=== PATIENT | male | born 1995 | race Caucasian/White ===

== ENCOUNTER 2023-02-27 23:25 | Inpatient (IN) | payer MEDICAID, OTHER ==
[~2023-02-27] VITALS: Ht 175.3 cm; Wt 94.4 kg
[~2023-02-27 23:25] MED LIST: CITA10TA99 PO; DIVA-112 PO; QUET100T PO; QUET300T2 PO
[2023-02-27 23:55] LABS: COVID AG,FIA SOURCE NASAL SWAB
[2023-02-27 23:58] LABS: BASOPHILS % (AUTO) 0.7 % (0.0-2.0); EOSINOPHILS % (AUTO) 3.8 % (1.0-6.0); HEMATOCRIT 38.3 % (41-53); HEMOGLOBIN 12.9 g/dL (13.5-17.5); LYMPHOCYTES % (AUTO) 38.4 % (22.0-44.0); MEAN CORPUSCULAR HEMOGLOBIN 31.7 pg (26.0-34.0); MEAN CORPUSCULAR HGB CONC 33.8 G/dL (31.0-37.0); MEAN CORPUSCULAR VOLUME 94 fL (80-100); MONOCYTES # (AUTO) 0.9 K/uL (0.1-1.0); MONOCYTES % (AUTO) 11.4 % (2.0-9.0); NEUTROPHILS # (AUTO) 3.6 K/uL (1.8-7.7); NEUTROPHILS % (AUTO) 45.7 % (40.0-70.0); PLATELET COUNT (AUTO) 245 K/uL (150-450); RED BLOOD CELL COUNT(AUTO) 4.09 MIL/uL (4.50-5.90); RED CELL DISTRIBUTION WIDTH 13.6 % (11.5-14.5); WHITE BLOOD COUNT (AUTO) 7.8 K/uL (4.5-11.0)
[2023-02-28 00:09] LABS: ANION GAP 14 mmol/L (8-16); CALCIUM, TOTAL 8.2 mg/dL (8.8-10.5); CARBON DIOXIDE 25 mmol/L (22-29); CHLORIDE 105 mmol/L (98-107); CREATININE 0.76 mg/dL (0.60-1.30); GLOMERULAR FILTR. RATE CALC > 60 mL/min (>60); GLUCOSE,RANDOM 109 mg/dL (70-110); POTASSIUM 3.6 mmol/L (3.5-5.1); SODIUM SERUM 144 mmol/L (136-145); UREA NITROGEN, BLOOD 9 mg/dL (7-18)
[2023-02-28 00:11] LABS: SARS-COV2 (COVID) ANTIGEN,FIA Negative (Negative)
[2023-02-28 00:15] LABS: ALANINE AMINOTRANSFERASE 162 U/L (12-78); ALKALINE PHOSPHATASE 65 U/L (46-116); ASPARTATE AMINOTRANSFERASE 68 U/L (15-37); BILIRUBIN,TOTAL 0.3 mg/dL (0.1-1.0); TOTAL PROTEIN, SERUM 6.4 g/dL (6.4-8.2); VALPROIC ACID 37 mcg/mL (50-100)
[2023-02-28 00:26] LABS: PH,URINE DRUG SCREEN 6.5 (5.0-8.0)
[2023-02-28 00:30] LABS: ALCOHOL, BLOOD (SERUM) < 3 mg/dL (0-10)
[2023-02-28 00:33] LABS: AMPHET/METH SCREEN,URINE NEGATIVE (NEGATIVE); BARBITURATE SCREEN, URINE NEGATIVE (NEGATIVE); BENZODIAZEPINES SCREEN,URINE NEGATIVE (NEGATIVE); CANNABINOID SCREEN,URINE NEGATIVE (NEGATIVE); COCAINE SCREEN,URINE NEGATIVE (NEGATIVE); METHADONE SCREEN, URINE NEGATIVE (NEGATIVE); OPIATE SCREEN,URINE NEGATIVE (NEGATIVE); PHENCYCLIDINE SCREEN,URINE NEGATIVE (NEGATIVE)
[2023-02-28 00:34] LABS: ALCOHOL, URINE DRUG SCREEN NEGATIVE (NEGATIVE)
[2023-02-28 10:57] VITALS: BP 127/72; PULSE 89; RESP 18; TEMP 97.8; O2SAT 99
[2023-02-28 11:05] LABS: APPEARANCE,URINE HAZY (CLEAR); BILIRUBIN,URINE NEGATIVE (NEGATIVE); COLOR,URINE LIGHT YELLOW (YELLOW); GLUCOSE, URINE (UA) NEGATIVE (NEGATIVE); KETONES,URINE NEGATIVE (NEGATIVE); LEUKOCYTE ESTERASE ,URINE NEGATIVE (NEGATIVE); NITRATE,URINE NEGATIVE (NEGATIVE); OCCULT BLOOD,URINE NEGATIVE (NEGATIVE); PROTEIN,URINE 30-70 mg/dL (NEGATIVE); UROBILINOGEN,URINE <=1.0 mg/dL (<=1.0)
[2023-02-28 11:11] LABS: ALCOHOL, URINE DRUG SCREEN NEGATIVE (NEGATIVE); AMPHET/METH SCREEN,URINE NEGATIVE (NEGATIVE); BARBITURATE SCREEN, URINE NEGATIVE (NEGATIVE); BENZODIAZEPINES SCREEN,URINE NEGATIVE (NEGATIVE); CANNABINOID SCREEN,URINE NEGATIVE (NEGATIVE); COCAINE SCREEN,URINE NEGATIVE (NEGATIVE); METHADONE SCREEN, URINE NEGATIVE (NEGATIVE); OPIATE SCREEN,URINE NEGATIVE (NEGATIVE); PHENCYCLIDINE SCREEN,URINE NEGATIVE (NEGATIVE)
[2023-02-28] MEDS ORDERED: NICOTINE 14 MG/24 HOUR PATCH TD PRN (12:45)
[2023-02-28] MEDS ORDERED: ALBUTEROL SULFATE HFA 90 MCG/PUFF 8 GM INHALER IH PRN (12:45)
[2023-02-28] MEDS ORDERED: ONDANSETRON HCL 4 MG TABLET PO PRN (12:45)
[2023-02-28] MEDS ORDERED: DOCUSATE SODIUM 100 MG CAPSULE PO PRN (12:45)
[2023-02-28] MEDS ORDERED: GuaiFENesin/D-METHORPHAN [SUGAR-FREE] 200-20MG/10 ML SYRUP UDCUP PO PRN (12:45)
[2023-02-28] MEDS ORDERED: MAGNESIUM HYDROXIDE SUSPENSION 30 ML UDCUP PO PRN (12:45)
[2023-02-28] MEDS ORDERED: PETROLATUM,WHITE 28 GM JELLY TP PRN (12:45)
[2023-02-28] MEDS ORDERED: LOPERAMIDE HCL 2 MG CAPSULE PO PRN (12:45)
[2023-02-28] MEDS ORDERED: CloNIDine HCL 0.1 MG TABLET PO PRN (12:45)
[2023-02-28] MEDS: QUEtiapine FUMARATE 300 MG TABLET PO SCH (20:47)
[2023-02-28] MEDS: DIVALPROEX SODIUM 500 MG DR TABLET PO SCH (20:47)
[2023-02-28 21:03] VITALS: BP 116/74; PULSE 88; RESP 16; TEMP 98.4; O2SAT 99
[2023-03-01] MEDS: CITALOPRAM HYDROBROMIDE 10 MG TABLET PO SCH (08:31)
[2023-03-01] MEDS: DIVALPROEX SODIUM 500 MG DR TABLET PO SCH ×2 (08:31→21:17)
[2023-03-01] MEDS: QUEtiapine FUMARATE 100 MG TABLET PO SCH (08:31)
[2023-03-01 09:27] VITALS: BP 111/67; PULSE 84; RESP 18; TEMP 97.2; O2SAT 100
[2023-03-01 10:31] LABS: HEMOGLOBIN A1C 5.2 % (3.8-5.6)
[2023-03-01 10:39] LABS: THYROID STIMULATING HORMONE 2.69 uIU/mL (0.36-3.74)
[2023-03-01] MEDS: QUEtiapine FUMARATE 300 MG TABLET PO SCH (21:17)
[2023-03-01 22:48] VITALS: BP 121/71; PULSE 99; RESP 18; TEMP 97.9; O2SAT 98
[2023-03-02 07:02] LABS: CHOL/HDL RATIO 3.9 (4.2-7.3)
[2023-03-02] MEDS: CITALOPRAM HYDROBROMIDE 10 MG TABLET PO SCH (08:46)
[2023-03-02] MEDS: QUEtiapine FUMARATE 100 MG TABLET PO SCH (08:46)
[2023-03-02] MEDS: DIVALPROEX SODIUM 500 MG DR TABLET PO SCH ×2 (08:46→21:47)
[2023-03-02 10:02] VITALS: BP 109/62; PULSE 80; RESP 17; TEMP 97.5; O2SAT 100
[2023-03-02 14:46] VITALS: BP 116/74; PULSE 86; RESP 18; TEMP 97.4
[2023-03-02] MEDS: ACETAMINOPHEN 325 MG TABLET PO PRN (14:46)
[2023-03-02 15:46] VITALS: BP 118/68; PULSE 82; RESP 18; TEMP 97.2
[2023-03-02 21:05] VITALS: BP 115/73; PULSE 80; RESP 18; TEMP 97.4
[2023-03-02] MEDS: QUEtiapine FUMARATE 300 MG TABLET PO SCH (21:47)
[2023-03-03] MEDS: QUEtiapine FUMARATE 100 MG TABLET PO SCH (08:19)
[2023-03-03] MEDS: DIVALPROEX SODIUM 500 MG DR TABLET PO SCH ×2 (08:19→16:25)
[2023-03-03] MEDS: CITALOPRAM HYDROBROMIDE 10 MG TABLET PO SCH (08:19)
[2023-03-03 09:33] VITALS: BP 99/69; PULSE 81; RESP 16; TEMP 98; O2SAT 98
[2023-03-03 12:09] VITALS: BP 106/74; PULSE 78; RESP 18; TEMP 97.6
[2023-03-03] MEDS: ACETAMINOPHEN 325 MG TABLET PO PRN (12:09)
[2023-03-03 13:09] VITALS: RESP 18; TEMP 97.4
[2023-03-03] MEDS: QUEtiapine FUMARATE 300 MG TABLET PO SCH (19:45)
[2023-03-03] MEDS: ZOLPIDEM TARTRATE 10 MG TABLET PO PRN (21:26)
[2023-03-03 21:39] VITALS: BP 123/78; PULSE 100; RESP 18; TEMP 98.3; O2SAT 98
[2023-03-04] MEDS: QUEtiapine FUMARATE 100 MG TABLET PO SCH (08:44)
[2023-03-04] MEDS: DIVALPROEX SODIUM 500 MG DR TABLET PO SCH ×2 (08:44→20:53)
[2023-03-04] MEDS: CITALOPRAM HYDROBROMIDE 10 MG TABLET PO SCH (08:44)
[2023-03-04 10:06] VITALS: BP 118/87; PULSE 79; RESP 19; TEMP 97.9; O2SAT 99
[2023-03-04] MEDS: ACETAMINOPHEN 325 MG TABLET PO PRN (15:58)
[2023-03-04] MEDS: LORazepam 2 MG TABLET PO PRN (19:10)
[2023-03-04] MEDS: HALOPERIDOL 5 MG TABLET PO PRN (19:10)
[2023-03-04 20:44] VITALS: BP 129/73; PULSE 87; RESP 19; TEMP 98.7; O2SAT 98
[2023-03-04] MEDS: ZOLPIDEM TARTRATE 10 MG TABLET PO PRN (20:53)
[2023-03-04] MEDS: QUEtiapine FUMARATE 300 MG TABLET PO SCH (20:53)
[2023-03-05] MEDS: DIVALPROEX SODIUM 500 MG DR TABLET PO SCH ×2 (08:28→21:26)
[2023-03-05] MEDS: CITALOPRAM HYDROBROMIDE 10 MG TABLET PO SCH (08:28)
[2023-03-05] MEDS: QUEtiapine FUMARATE 100 MG TABLET PO SCH (08:28)
[2023-03-05 09:55] VITALS: BP 115/71; PULSE 81; RESP 18; TEMP 98.4; O2SAT 97
[2023-03-05] MEDS: IBUPROFEN 400 MG TABLET PO PRN (10:03)
[2023-03-05] MEDS: NICOTINE 14 MG/24 HOUR PATCH TD SCH (13:16)
[2023-03-05] MEDS: LORazepam 2 MG TABLET PO PRN ×2 (13:17→21:27)
[2023-03-05] MEDS: HALOPERIDOL 5 MG TABLET PO PRN (21:26)
[2023-03-05] MEDS: QUEtiapine FUMARATE 300 MG TABLET PO SCH (21:26)
[2023-03-05] MEDS: ZOLPIDEM TARTRATE 10 MG TABLET PO PRN (21:27)
[2023-03-05] MEDS ORDERED: HALOPERIDOL LACTATE 5 MG/ML VIAL ONE (21:41)
[2023-03-05] MEDS ORDERED: LORazepam 2 MG/ML VIAL ONE (21:42)
[2023-03-05] MEDS ORDERED: HALOPERIDOL LACTATE 5 MG/ML VIAL IM ONE (21:45)
[2023-03-05] MEDS ORDERED: LORazepam 2 MG/ML VIAL IM ONE (21:45)
[2023-03-05] MEDS ORDERED: DiphenhydrAMINE HCL 50 MG/ML VIAL IM ONE (21:45)
[2023-03-05 22:11] VITALS: BP 112/69; PULSE 74; RESP 16; TEMP 98.5; O2SAT 99
[2023-03-06] MEDS: CITALOPRAM HYDROBROMIDE 10 MG TABLET PO SCH (09:51)
[2023-03-06] MEDS: DIVALPROEX SODIUM 500 MG DR TABLET PO SCH ×2 (09:51→20:20)
[2023-03-06] MEDS: QUEtiapine FUMARATE 100 MG TABLET PO SCH (09:51)
[2023-03-06] MEDS: NICOTINE 14 MG/24 HOUR PATCH TD SCH (09:56)
[2023-03-06 10:27] VITALS: BP 100/61; PULSE 87; RESP 18; TEMP 97.5; O2SAT 98
[2023-03-06] MEDS: HALOPERIDOL 5 MG TABLET PO PRN (18:11)
[2023-03-06] MEDS: LORazepam 2 MG TABLET PO PRN (18:11)
[2023-03-06] MEDS: QUEtiapine FUMARATE 300 MG TABLET PO SCH (20:20)
[2023-03-06 20:36] VITALS: RESP 18
[2023-03-06] MEDS: ZOLPIDEM TARTRATE 10 MG TABLET PO PRN (21:21)
[2023-03-07 10:18] VITALS: BP 126/85; PULSE 81; RESP 18; TEMP 97.4; O2SAT 98
[2023-03-07] MEDS: QUEtiapine FUMARATE 100 MG TABLET PO SCH (10:48)
[2023-03-07] MEDS: DIVALPROEX SODIUM 500 MG DR TABLET PO SCH ×2 (10:48→20:19)
[2023-03-07] MEDS: CITALOPRAM HYDROBROMIDE 10 MG TABLET PO SCH (10:48)
[2023-03-07] MEDS: NICOTINE 14 MG/24 HOUR PATCH TD SCH (10:48)
[2023-03-07] MEDS: LORazepam 2 MG TABLET PO PRN (19:23)
[2023-03-07 20:12] VITALS: BP 124/77; PULSE 84; RESP 18; TEMP 98.1; O2SAT 97
[2023-03-07] MEDS: QUEtiapine FUMARATE 300 MG TABLET PO SCH (20:19)
[2023-03-07] MEDS: ZOLPIDEM TARTRATE 10 MG TABLET PO PRN (21:22)
[2023-03-08 08:19] VITALS: BP 117/76; PULSE 101; RESP 18; TEMP 97.6; O2SAT 97
[2023-03-08] MEDS: QUEtiapine FUMARATE 100 MG TABLET PO SCH (08:28)
[2023-03-08] MEDS: DIVALPROEX SODIUM 500 MG DR TABLET PO SCH ×2 (08:28→20:36)
[2023-03-08] MEDS: CITALOPRAM HYDROBROMIDE 10 MG TABLET PO SCH (08:28)
[2023-03-08] MEDS: NICOTINE 14 MG/24 HOUR PATCH TD SCH (08:29)
[2023-03-08] MEDS: LORazepam 2 MG TABLET PO PRN ×2 (08:55→19:11)
[2023-03-08] MEDS: HYDROCORTISONE 1% 30 GM CREAM TP PRN (11:44)
[2023-03-08] MEDS: IBUPROFEN 400 MG TABLET PO PRN (13:43)
[2023-03-08] MEDS: QUEtiapine FUMARATE 300 MG TABLET PO SCH (20:36)
[2023-03-08] MEDS: ZOLPIDEM TARTRATE 10 MG TABLET PO PRN (21:10)
[2023-03-08] MEDS: HALOPERIDOL 5 MG TABLET PO PRN (23:12)
[2023-03-09 05:35] VITALS: BP 102/60; PULSE 85; RESP 18; O2SAT 97
[2023-03-09 08:12] VITALS: BP 125/78; PULSE 100; RESP 20; TEMP 97.5; O2SAT 99
[2023-03-09] MEDS: QUEtiapine FUMARATE 100 MG TABLET PO SCH (08:14)
[2023-03-09] MEDS: CITALOPRAM HYDROBROMIDE 10 MG TABLET PO SCH (08:14)
[2023-03-09] MEDS: DIVALPROEX SODIUM 500 MG DR TABLET PO SCH ×2 (08:14→20:57)
[2023-03-09] MEDS: NICOTINE 14 MG/24 HOUR PATCH TD SCH (08:15)
[2023-03-09] MEDS: LORazepam 2 MG TABLET PO PRN (19:30)
[2023-03-09] MEDS: HALOPERIDOL 5 MG TABLET PO PRN (19:30)
[2023-03-09 20:14] VITALS: RESP 18
[2023-03-09] MEDS: QUEtiapine FUMARATE 300 MG TABLET PO SCH (20:58)
[2023-03-09] MEDS: ZOLPIDEM TARTRATE 10 MG TABLET PO PRN (21:30)
[2023-03-10] MEDS ORDERED: BACITRACIN 28 GM OINTMENT TP PRN (07:45)
[2023-03-10] MEDS: NICOTINE 14 MG/24 HOUR PATCH TD SCH (08:22)
[2023-03-10] MEDS: DIVALPROEX SODIUM 500 MG DR TABLET PO SCH ×2 (08:22→21:32)
[2023-03-10] MEDS: CITALOPRAM HYDROBROMIDE 10 MG TABLET PO SCH (08:22)
[2023-03-10] MEDS: QUEtiapine FUMARATE 100 MG TABLET PO SCH (08:22)
[2023-03-10 08:28] VITALS: BP 147/82; PULSE 89; RESP 17; TEMP 97.7
[2023-03-10] MEDS: HYDROCORTISONE 1% 30 GM CREAM TP PRN (14:42)
[2023-03-10 17:07] VITALS: BP 139/78; PULSE 78; RESP 18; TEMP 97.8; O2SAT 98
[2023-03-10] MEDS: ACETAMINOPHEN 325 MG TABLET PO PRN (17:07)
[2023-03-10] MEDS: LORazepam 2 MG TABLET PO PRN (19:45)
[2023-03-10] MEDS: HALOPERIDOL 5 MG TABLET PO PRN (19:45)
[2023-03-10 20:40] VITALS: BP 129/72; PULSE 77; RESP 18; TEMP 97.7; O2SAT 97
[2023-03-10] MEDS: ZOLPIDEM TARTRATE 10 MG TABLET PO PRN (21:32)
[2023-03-10] MEDS: QUEtiapine FUMARATE 300 MG TABLET PO SCH (21:32)
[2023-03-11 08:30] VITALS: BP 106/80; PULSE 89; RESP 18; TEMP 97.6; O2SAT 96
[2023-03-11] MEDS: DIVALPROEX SODIUM 500 MG DR TABLET PO SCH ×2 (08:57→21:15)
[2023-03-11] MEDS: QUEtiapine FUMARATE 100 MG TABLET PO SCH (08:57)
[2023-03-11] MEDS: CITALOPRAM HYDROBROMIDE 10 MG TABLET PO SCH (08:57)
[2023-03-11] MEDS: NICOTINE 14 MG/24 HOUR PATCH TD SCH (08:57)
[2023-03-11 11:40] VITALS: BP 115/76; PULSE 78; RESP 18
[2023-03-11] MEDS: IBUPROFEN 400 MG TABLET PO PRN (11:45)
[2023-03-11 12:45] VITALS: RESP 18
[2023-03-11] MEDS: LORazepam 2 MG TABLET PO PRN (19:55)
[2023-03-11] MEDS: HALOPERIDOL 5 MG TABLET PO PRN (19:55)
[2023-03-11 20:44] VITALS: BP 132/89; PULSE 100; RESP 18; TEMP 98
[2023-03-11] MEDS: ZOLPIDEM TARTRATE 10 MG TABLET PO PRN (21:15)
[2023-03-11] MEDS: QUEtiapine FUMARATE 300 MG TABLET PO SCH (21:15)
[2023-03-12 08:30] VITALS: RESP 18
[2023-03-12] MEDS: CITALOPRAM HYDROBROMIDE 10 MG TABLET PO SCH (09:02)
[2023-03-12] MEDS: DIVALPROEX SODIUM 500 MG DR TABLET PO SCH ×2 (09:02→21:06)
[2023-03-12] MEDS: QUEtiapine FUMARATE 100 MG TABLET PO SCH (09:02)
[2023-03-12] MEDS: NICOTINE 14 MG/24 HOUR PATCH TD SCH (09:03)
[2023-03-12 21:05] VITALS: RESP 20
[2023-03-12] MEDS: QUEtiapine FUMARATE 300 MG TABLET PO SCH (21:06)
[2023-03-12] MEDS: ZOLPIDEM TARTRATE 10 MG TABLET PO PRN (21:06)
[2023-03-13] MEDS: LORazepam 2 MG TABLET PO PRN ×2 (08:33→17:08)
[2023-03-13] MEDS: QUEtiapine FUMARATE 100 MG TABLET PO SCH (08:33)
[2023-03-13] MEDS: DIVALPROEX SODIUM 500 MG DR TABLET PO SCH ×2 (08:33→20:54)
[2023-03-13] MEDS: CITALOPRAM HYDROBROMIDE 10 MG TABLET PO SCH (08:33)
[2023-03-13] MEDS: NICOTINE 14 MG/24 HOUR PATCH TD SCH (08:37)
[2023-03-13 09:18] VITALS: BP 111/69; PULSE 69; RESP 18; TEMP 97.5; O2SAT 98
[2023-03-13] MEDS: HALOPERIDOL 5 MG TABLET PO PRN (17:09)
[2023-03-13] MEDS: IBUPROFEN 400 MG TABLET PO PRN (17:09)
[2023-03-13] MEDS: QUEtiapine FUMARATE 300 MG TABLET PO SCH (20:54)
[2023-03-13 21:09] VITALS: BP 121/65; PULSE 94; RESP 18; TEMP 97.9; O2SAT 97
[2023-03-14] MEDS: QUEtiapine FUMARATE 100 MG TABLET PO SCH (08:33)
[2023-03-14] MEDS: CITALOPRAM HYDROBROMIDE 10 MG TABLET PO SCH (08:34)
[2023-03-14] MEDS: DIVALPROEX SODIUM 500 MG DR TABLET PO SCH ×2 (08:34→20:26)
[2023-03-14] MEDS: NICOTINE 14 MG/24 HOUR PATCH TD SCH (08:36)
[2023-03-14 08:54] VITALS: BP 136/90; PULSE 103; RESP 18; TEMP 97.7; O2SAT 98
[2023-03-14] MEDS: IBUPROFEN 400 MG TABLET PO PRN ×2 (11:45→20:27)
[2023-03-14] MEDS: HALOPERIDOL 5 MG TABLET PO PRN (13:42)
[2023-03-14] MEDS: LORazepam 2 MG TABLET PO PRN ×2 (13:42→20:26)
[2023-03-14 20:23] VITALS: BP 125/74; PULSE 88; RESP 18; TEMP 97.2; O2SAT 97
[2023-03-14] MEDS: QUEtiapine FUMARATE 300 MG TABLET PO SCH (20:26)
[2023-03-14] MEDS: ZOLPIDEM TARTRATE 10 MG TABLET PO PRN (20:26)
[2023-03-14 20:42] VITALS: BP 122/79; PULSE 102; RESP 18; TEMP 97.1; O2SAT 98
[2023-03-14 21:26] VITALS: RESP 18
[2023-03-15] MEDS: CITALOPRAM HYDROBROMIDE 10 MG TABLET PO SCH (08:47)
[2023-03-15] MEDS: QUEtiapine FUMARATE 100 MG TABLET PO SCH (08:47)
[2023-03-15] MEDS: DIVALPROEX SODIUM 500 MG DR TABLET PO SCH ×2 (08:47→20:57)
[2023-03-15] MEDS: NICOTINE 14 MG/24 HOUR PATCH TD SCH (09:08)
[2023-03-15 11:59] VITALS: BP 141/82; PULSE 70; RESP 18; TEMP 97.8; O2SAT 98
[2023-03-15] MEDS: IBUPROFEN 400 MG TABLET PO PRN (13:26)
[2023-03-15 20:20] VITALS: BP 149/80; PULSE 85; RESP 19; TEMP 97.8; O2SAT 99
[2023-03-15] MEDS: QUEtiapine FUMARATE 300 MG TABLET PO SCH (20:57)
[2023-03-15] MEDS: ZOLPIDEM TARTRATE 10 MG TABLET PO PRN (20:57)
[2023-03-15] MEDS: MELATONIN 5 MG TABLET PO SCH (20:57)
[2023-03-16] MEDS: DIVALPROEX SODIUM 500 MG DR TABLET PO SCH ×2 (08:29→20:53)
[2023-03-16 08:30] VITALS: RESP 18
[2023-03-16] MEDS: CITALOPRAM HYDROBROMIDE 10 MG TABLET PO SCH (08:30)
[2023-03-16] MEDS: NICOTINE 14 MG/24 HOUR PATCH TD SCH (08:30)
[2023-03-16] MEDS: QUEtiapine FUMARATE 100 MG TABLET PO SCH (08:30)
[2023-03-16] MEDS: IBUPROFEN 400 MG TABLET PO PRN (08:31)
[2023-03-16 08:41] VITALS: BP 109/73; PULSE 91; RESP 18; TEMP 97.8; O2SAT 97
[2023-03-16] MEDS: HYDROCORTISONE 1% 30 GM CREAM TP PRN (09:23)
[2023-03-16 09:30] VITALS: RESP 18
[2023-03-16] MEDS: LORazepam 2 MG TABLET PO PRN (15:24)
[2023-03-16] MEDS: MELATONIN 5 MG TABLET PO SCH (20:53)
[2023-03-16] MEDS: ZOLPIDEM TARTRATE 10 MG TABLET PO PRN (20:53)
[2023-03-16] MEDS: QUEtiapine FUMARATE 300 MG TABLET PO SCH (20:53)
[2023-03-16 21:00] VITALS: BP 127/73; PULSE 102; RESP 18; TEMP 98.1; O2SAT 97
[2023-03-17] MEDS: CITALOPRAM HYDROBROMIDE 10 MG TABLET PO SCH (08:11)
[2023-03-17] MEDS: DIVALPROEX SODIUM 500 MG DR TABLET PO SCH ×2 (08:12→20:51)
[2023-03-17] MEDS: QUEtiapine FUMARATE 100 MG TABLET PO SCH (08:12)
[2023-03-17] MEDS: NICOTINE 14 MG/24 HOUR PATCH TD SCH (08:14)
[2023-03-17 08:37] VITALS: BP 145/93; PULSE 102; RESP 18; TEMP 97.7; O2SAT 98
[2023-03-17] MEDS: IBUPROFEN 400 MG TABLET PO PRN ×2 (08:37→17:03)
[2023-03-17] MEDS: BusPIRone HCL 5 MG TABLET PO SCH ×3 (14:20→20:51)
[2023-03-17 17:01] VITALS: BP 132/68; PULSE 100; RESP 18; O2SAT 0
[2023-03-17 20:21] VITALS: RESP 20
[2023-03-17] MEDS: QUEtiapine FUMARATE 300 MG TABLET PO SCH (20:51)
[2023-03-17] MEDS: MELATONIN 5 MG TABLET PO SCH (20:51)
[2023-03-17] MEDS: ZOLPIDEM TARTRATE 10 MG TABLET PO PRN (21:24)
[2023-03-18 08:54] VITALS: BP 102/70; PULSE 88; RESP 18; TEMP 97.9; O2SAT 97
[2023-03-18] MEDS: CITALOPRAM HYDROBROMIDE 10 MG TABLET PO SCH (08:55)
[2023-03-18] MEDS: BusPIRone HCL 5 MG TABLET PO SCH ×3 (08:56→21:01)
[2023-03-18] MEDS: QUEtiapine FUMARATE 100 MG TABLET PO SCH (08:57)
[2023-03-18] MEDS: DIVALPROEX SODIUM 500 MG DR TABLET PO SCH ×2 (08:57→21:01)
[2023-03-18] MEDS: NICOTINE 14 MG/24 HOUR PATCH TD SCH (09:03)
[2023-03-18] MEDS: LORazepam 2 MG TABLET PO PRN (09:18)
[2023-03-18] MEDS: IBUPROFEN 400 MG TABLET PO PRN (18:28)
[2023-03-18] MEDS: MELATONIN 5 MG TABLET PO SCH (21:01)
[2023-03-18] MEDS: ZOLPIDEM TARTRATE 10 MG TABLET PO PRN (21:01)
[2023-03-18] MEDS: QUEtiapine FUMARATE 300 MG TABLET PO SCH (21:01)
[2023-03-18 21:52] VITALS: RESP 18
[2023-03-19] MEDS: CITALOPRAM HYDROBROMIDE 10 MG TABLET PO SCH (07:51)
[2023-03-19] MEDS: QUEtiapine FUMARATE 100 MG TABLET PO SCH (07:52)
[2023-03-19] MEDS: DIVALPROEX SODIUM 500 MG DR TABLET PO SCH ×2 (07:52→20:31)
[2023-03-19] MEDS: BusPIRone HCL 5 MG TABLET PO SCH ×3 (07:52→20:31)
[2023-03-19] MEDS: NICOTINE 14 MG/24 HOUR PATCH TD SCH (07:55)
[2023-03-19 08:30] VITALS: BP 110/56; PULSE 81; RESP 16; TEMP 98.5; O2SAT 99
[2023-03-19] MEDS: IBUPROFEN 400 MG TABLET PO PRN (16:06)
[2023-03-19] MEDS: QUEtiapine FUMARATE 300 MG TABLET PO SCH (20:31)
[2023-03-19] MEDS: MELATONIN 5 MG TABLET PO SCH (20:31)
[2023-03-19] MEDS: ZOLPIDEM TARTRATE 10 MG TABLET PO PRN (21:13)
[2023-03-19 21:30] VITALS: BP 118/71; PULSE 109; RESP 18; TEMP 98.6; O2SAT 97
[2023-03-20] MEDS: BusPIRone HCL 5 MG TABLET PO SCH ×3 (07:59→20:21)
[2023-03-20] MEDS: CITALOPRAM HYDROBROMIDE 10 MG TABLET PO SCH (08:00)
[2023-03-20] MEDS: QUEtiapine FUMARATE 100 MG TABLET PO SCH (08:01)
[2023-03-20] MEDS: DIVALPROEX SODIUM 500 MG DR TABLET PO SCH ×2 (08:01→20:22)
[2023-03-20] MEDS: NICOTINE 14 MG/24 HOUR PATCH TD SCH (08:02)
[2023-03-20 08:46] VITALS: BP 121/98; PULSE 93; RESP 18; TEMP 97.5
[2023-03-20] MEDS: QUEtiapine FUMARATE 300 MG TABLET PO SCH (20:22)
[2023-03-20] MEDS: MELATONIN 5 MG TABLET PO SCH (20:22)
[2023-03-20 21:07] VITALS: BP 120/63; PULSE 89; RESP 18; TEMP 97.4
[2023-03-20] MEDS: HALOPERIDOL 5 MG TABLET PO PRN (21:45)
[2023-03-20] MEDS: LORazepam 2 MG TABLET PO PRN (21:45)
[2023-03-20] MEDS: ZOLPIDEM TARTRATE 10 MG TABLET PO PRN (22:51)
[2023-03-21] MEDS: DIVALPROEX SODIUM 500 MG DR TABLET PO SCH ×2 (08:26→20:41)
[2023-03-21] MEDS: QUEtiapine FUMARATE 100 MG TABLET PO SCH (08:26)
[2023-03-21] MEDS: NICOTINE 14 MG/24 HOUR PATCH TD SCH (08:26)
[2023-03-21] MEDS: BusPIRone HCL 5 MG TABLET PO SCH ×3 (08:27→20:41)
[2023-03-21] MEDS: CITALOPRAM HYDROBROMIDE 10 MG TABLET PO SCH (08:27)
[2023-03-21 08:43] VITALS: BP 119/72; PULSE 111; RESP 20; TEMP 97.6; O2SAT 98
[2023-03-21] MEDS: IBUPROFEN 400 MG TABLET PO PRN (13:54)
[2023-03-21 13:55] VITALS: BP 119/72; PULSE 100; RESP 18; TEMP 98.2
[2023-03-21 14:55] VITALS: BP 12/77; PULSE 77; RESP 17; TEMP 97.6
[2023-03-21 20:06] VITALS: BP 117/80; PULSE 69; RESP 18; TEMP 97.8; O2SAT 18
[2023-03-21] MEDS: MELATONIN 5 MG TABLET PO SCH (20:41)
[2023-03-21] MEDS: QUEtiapine FUMARATE 300 MG TABLET PO SCH (20:41)
[2023-03-21] MEDS: ZOLPIDEM TARTRATE 10 MG TABLET PO PRN (21:27)
[2023-03-22 08:51] VITALS: BP 129/87; PULSE 99; RESP 18; TEMP 97.9; O2SAT 97
[2023-03-22] MEDS: BusPIRone HCL 5 MG TABLET PO SCH ×3 (09:39→20:35)
[2023-03-22] MEDS: CITALOPRAM HYDROBROMIDE 10 MG TABLET PO SCH (09:40)
[2023-03-22] MEDS: QUEtiapine FUMARATE 100 MG TABLET PO SCH (09:41)
[2023-03-22] MEDS: NICOTINE 14 MG/24 HOUR PATCH TD SCH (09:41)
[2023-03-22] MEDS: DIVALPROEX SODIUM 500 MG DR TABLET PO SCH ×2 (09:42→20:34)
[2023-03-22] MEDS: HALOPERIDOL 5 MG TABLET PO PRN ×2 (09:45→21:06)
[2023-03-22] MEDS: LORazepam 2 MG TABLET PO PRN ×2 (09:45→21:06)
[2023-03-22] MEDS: ZOLPIDEM TARTRATE 10 MG TABLET PO PRN ×2 (20:08→21:14)
[2023-03-22 20:24] VITALS: BP 125/73; PULSE 96; RESP 18; TEMP 98.3
[2023-03-22] MEDS: MELATONIN 5 MG TABLET PO SCH (20:34)
[2023-03-22] MEDS: QUEtiapine FUMARATE 300 MG TABLET PO SCH (20:34)
[2023-03-23] MEDS: BusPIRone HCL 5 MG TABLET PO SCH ×3 (09:06→20:41)
[2023-03-23] MEDS: QUEtiapine FUMARATE 100 MG TABLET PO SCH (09:07)
[2023-03-23] MEDS: DIVALPROEX SODIUM 500 MG DR TABLET PO SCH ×2 (09:07→20:41)
[2023-03-23] MEDS: CITALOPRAM HYDROBROMIDE 10 MG TABLET PO SCH (09:07)
[2023-03-23] MEDS: NICOTINE 14 MG/24 HOUR PATCH TD SCH (09:08)
[2023-03-23 11:34] VITALS: BP 109/61; PULSE 100; RESP 18; TEMP 97.8
[2023-03-23 12:32] VITALS: BP 116/74; PULSE 94; RESP 18; TEMP 97.6
[2023-03-23] MEDS: IBUPROFEN 400 MG TABLET PO PRN (12:32)
[2023-03-23 13:32] VITALS: BP 118/78; PULSE 92; RESP 18; TEMP 97.9
[2023-03-23 20:15] VITALS: BP 122/84; PULSE 79; RESP 18; TEMP 97.4; O2SAT 98
[2023-03-23] MEDS: QUEtiapine FUMARATE 300 MG TABLET PO SCH (20:41)
[2023-03-23] MEDS: MELATONIN 5 MG TABLET PO SCH (20:41)
[2023-03-24] MEDS: NICOTINE 14 MG/24 HOUR PATCH TD SCH (08:32)
[2023-03-24] MEDS: DIVALPROEX SODIUM 500 MG DR TABLET PO SCH ×2 (08:32→20:33)
[2023-03-24] MEDS: BusPIRone HCL 5 MG TABLET PO SCH ×3 (08:32→20:33)
[2023-03-24] MEDS: QUEtiapine FUMARATE 100 MG TABLET PO SCH (08:32)
[2023-03-24 08:33] VITALS: BP 139/94; PULSE 88; RESP 19; TEMP 98; O2SAT 96
[2023-03-24] MEDS: CITALOPRAM HYDROBROMIDE 10 MG TABLET PO SCH (08:33)
[2023-03-24] MEDS: IBUPROFEN 400 MG TABLET PO PRN (08:33)
[2023-03-24 09:33] VITALS: BP 128/86; PULSE 84; RESP 18; TEMP 97.8
[2023-03-24] MEDS: MELATONIN 5 MG TABLET PO SCH (20:33)
[2023-03-24] MEDS: QUEtiapine FUMARATE 300 MG TABLET PO SCH (20:34)
[2023-03-24 22:07] VITALS: RESP 18
[2023-03-25] MEDS: CITALOPRAM HYDROBROMIDE 10 MG TABLET PO SCH (08:31)
[2023-03-25] MEDS: BusPIRone HCL 5 MG TABLET PO SCH ×3 (08:31→20:22)
[2023-03-25] MEDS: QUEtiapine FUMARATE 100 MG TABLET PO SCH (08:33)
[2023-03-25] MEDS: DIVALPROEX SODIUM 500 MG DR TABLET PO SCH ×2 (08:33→20:22)
[2023-03-25 09:58] VITALS: BP 144/91; PULSE 103; RESP 18; TEMP 97.5; O2SAT 98
[2023-03-25] MEDS: IBUPROFEN 400 MG TABLET PO PRN (11:43)
[2023-03-25] MEDS: LORazepam 2 MG TABLET PO PRN (19:55)
[2023-03-25] MEDS: MELATONIN 5 MG TABLET PO SCH (20:22)
[2023-03-25] MEDS: QUEtiapine FUMARATE 300 MG TABLET PO SCH (20:22)
[2023-03-25 20:49] VITALS: BP 131/82; PULSE 93; RESP 18; TEMP 98.1; O2SAT 18
[2023-03-25] MEDS: ZOLPIDEM TARTRATE 10 MG TABLET PO PRN (21:21)
[2023-03-26] MEDS: QUEtiapine FUMARATE 100 MG TABLET PO SCH (08:46)
[2023-03-26] MEDS: BusPIRone HCL 5 MG TABLET PO SCH ×3 (08:47→20:25)
[2023-03-26] MEDS: CITALOPRAM HYDROBROMIDE 10 MG TABLET PO SCH (08:47)
[2023-03-26] MEDS: DIVALPROEX SODIUM 500 MG DR TABLET PO SCH ×2 (08:47→20:25)
[2023-03-26] MEDS: IBUPROFEN 400 MG TABLET PO PRN (12:33)
[2023-03-26 13:11] VITALS: BP 96/54; PULSE 94; RESP 17; TEMP 97.7; O2SAT 98
[2023-03-26] MEDS: LORazepam 2 MG TABLET PO PRN (19:33)
[2023-03-26] MEDS: HALOPERIDOL 5 MG TABLET PO PRN (19:33)
[2023-03-26] MEDS: QUEtiapine FUMARATE 300 MG TABLET PO SCH (20:25)
[2023-03-26] MEDS: MELATONIN 5 MG TABLET PO SCH (20:25)
[2023-03-26 20:41] VITALS: BP 119/79; PULSE 89; RESP 18; TEMP 97.9
[2023-03-26] MEDS: ZOLPIDEM TARTRATE 10 MG TABLET PO PRN (21:41)
[2023-03-27] MEDS: BusPIRone HCL 5 MG TABLET PO SCH ×3 (09:04→20:29)
[2023-03-27] MEDS: QUEtiapine FUMARATE 100 MG TABLET PO SCH (09:04)
[2023-03-27] MEDS: CITALOPRAM HYDROBROMIDE 10 MG TABLET PO SCH (09:04)
[2023-03-27] MEDS: DIVALPROEX SODIUM 500 MG DR TABLET PO SCH ×2 (09:04→20:29)
[2023-03-27 09:15] VITALS: BP 114/71; PULSE 80; RESP 18; TEMP 97.8; O2SAT 98
[2023-03-27 12:40] VITALS: BP 118/72; PULSE 84; RESP 18; TEMP 97.4
[2023-03-27] MEDS: IBUPROFEN 400 MG TABLET PO PRN (12:40)
[2023-03-27 13:40] VITALS: BP 112/76; PULSE 78; RESP 18; TEMP 97.6
[2023-03-27] MEDS: LORazepam 2 MG TABLET PO PRN (18:41)
[2023-03-27] MEDS: MELATONIN 5 MG TABLET PO SCH (20:29)
[2023-03-27] MEDS: QUEtiapine FUMARATE 300 MG TABLET PO SCH (20:29)
[2023-03-27 20:35] VITALS: BP 123/80; PULSE 93; RESP 18; TEMP 97.8; O2SAT 96
[2023-03-27] MEDS: ZOLPIDEM TARTRATE 10 MG TABLET PO PRN (21:22)
[2023-03-28 08:05] VITALS: BP 125/91; PULSE 103; RESP 18; TEMP 98; O2SAT 98
[2023-03-28] MEDS: BusPIRone HCL 5 MG TABLET PO SCH ×3 (08:40→20:01)
[2023-03-28] MEDS: QUEtiapine FUMARATE 100 MG TABLET PO SCH (08:40)
[2023-03-28] MEDS: DIVALPROEX SODIUM 500 MG DR TABLET PO SCH ×2 (08:40→20:02)
[2023-03-28] MEDS: CITALOPRAM HYDROBROMIDE 10 MG TABLET PO SCH (08:40)
[2023-03-28] MEDS: HYDROCORTISONE 1% 30 GM CREAM TP PRN (08:43)
[2023-03-28] MEDS: IBUPROFEN 400 MG TABLET PO PRN (12:05)
[2023-03-28] MEDS: QUEtiapine FUMARATE 300 MG TABLET PO SCH (20:01)
[2023-03-28] MEDS: MELATONIN 5 MG TABLET PO SCH (20:02)
[2023-03-28 20:36] VITALS: BP 137/86; PULSE 90; RESP 18; TEMP 98; O2SAT 98
[2023-03-29 08:05] VITALS: BP 134/84; PULSE 82; RESP 18; TEMP 98.1; O2SAT 96
[2023-03-29] MEDS: BusPIRone HCL 5 MG TABLET PO SCH ×3 (08:34→20:43)
[2023-03-29] MEDS: QUEtiapine FUMARATE 100 MG TABLET PO SCH (08:34)
[2023-03-29] MEDS: CITALOPRAM HYDROBROMIDE 10 MG TABLET PO SCH (08:34)
[2023-03-29] MEDS: DIVALPROEX SODIUM 500 MG DR TABLET PO SCH ×2 (08:34→20:43)
[2023-03-29 09:18] VITALS: BP 132/86; PULSE 84; RESP 18; TEMP 97.9
[2023-03-29] MEDS: IBUPROFEN 400 MG TABLET PO PRN (09:18)
[2023-03-29 10:18] VITALS: BP 128/82; PULSE 86; RESP 18; TEMP 97.6
[2023-03-29] MEDS: HALOPERIDOL 5 MG TABLET PO PRN (14:11)
[2023-03-29] MEDS: LORazepam 2 MG TABLET PO PRN (14:11)
[2023-03-29] MEDS: HYDROCORTISONE 1% 30 GM CREAM TP PRN (17:24)
[2023-03-29] MEDS: MELATONIN 5 MG TABLET PO SCH (20:43)
[2023-03-29] MEDS: QUEtiapine FUMARATE 300 MG TABLET PO SCH (20:43)
[2023-03-29 20:57] VITALS: BP 126/76; PULSE 80; RESP 19; TEMP 97.2
[2023-03-29] MEDS: ZOLPIDEM TARTRATE 10 MG TABLET PO PRN (21:32)
[2023-03-30] MEDS: BusPIRone HCL 5 MG TABLET PO SCH ×3 (07:52→20:20)
[2023-03-30] MEDS: QUEtiapine FUMARATE 100 MG TABLET PO SCH (07:52)
[2023-03-30] MEDS: DIVALPROEX SODIUM 500 MG DR TABLET PO SCH ×2 (07:52→20:20)
[2023-03-30] MEDS: CITALOPRAM HYDROBROMIDE 10 MG TABLET PO SCH (07:52)
[2023-03-30] MEDS: LORazepam 2 MG TABLET PO PRN ×2 (08:33→19:36)
[2023-03-30] MEDS: HALOPERIDOL 5 MG TABLET PO PRN ×2 (08:33→19:36)
[2023-03-30] MEDS: HYDROCORTISONE 1% 30 GM CREAM TP PRN (09:09)
[2023-03-30 09:11] VITALS: BP 112/87; PULSE 78; RESP 17; TEMP 98
[2023-03-30] MEDS: IBUPROFEN 400 MG TABLET PO PRN (09:11)
[2023-03-30 09:46] VITALS: BP 112/87; PULSE 87; RESP 19; TEMP 97.4
[2023-03-30 10:11] VITALS: BP 128/77; PULSE 78; RESP 17; TEMP 98
[2023-03-30 20:05] VITALS: BP 120/80; PULSE 76; RESP 17; TEMP 98; O2SAT 97
[2023-03-30] MEDS: MELATONIN 5 MG TABLET PO SCH (20:20)
[2023-03-30] MEDS: QUEtiapine FUMARATE 300 MG TABLET PO SCH (20:20)
[2023-03-30] MEDS: ZOLPIDEM TARTRATE 10 MG TABLET PO PRN (21:39)
[2023-03-31] MEDS: CITALOPRAM HYDROBROMIDE 10 MG TABLET PO SCH (09:13)
[2023-03-31] MEDS: HYDROCORTISONE 1% 30 GM CREAM TP PRN (09:13)
[2023-03-31] MEDS: BusPIRone HCL 5 MG TABLET PO SCH ×3 (09:13→20:10)
[2023-03-31] MEDS: DIVALPROEX SODIUM 500 MG DR TABLET PO SCH ×2 (09:16→20:10)
[2023-03-31] MEDS: QUEtiapine FUMARATE 100 MG TABLET PO SCH (09:16)
[2023-03-31] MEDS: LORazepam 2 MG TABLET PO PRN ×2 (16:34→19:33)
[2023-03-31] MEDS: HALOPERIDOL 5 MG TABLET PO PRN (19:33)
[2023-03-31 20:10] VITALS: BP 118/76; PULSE 80; RESP 18; TEMP 97.6
[2023-03-31] MEDS: QUEtiapine FUMARATE 300 MG TABLET PO SCH (20:10)
[2023-03-31] MEDS: MELATONIN 5 MG TABLET PO SCH (20:10)
[2023-03-31] MEDS: ZOLPIDEM TARTRATE 10 MG TABLET PO PRN (21:28)
[2023-04-01] MEDS: BusPIRone HCL 5 MG TABLET PO SCH ×3 (08:28→20:55)
[2023-04-01] MEDS: CITALOPRAM HYDROBROMIDE 10 MG TABLET PO SCH (08:28)
[2023-04-01] MEDS: DIVALPROEX SODIUM 500 MG DR TABLET PO SCH ×2 (08:30→20:55)
[2023-04-01] MEDS: QUEtiapine FUMARATE 100 MG TABLET PO SCH (08:30)
[2023-04-01 10:58] VITALS: RESP 18
[2023-04-01] MEDS: QUEtiapine FUMARATE 300 MG TABLET PO SCH (20:55)
[2023-04-01] MEDS: MELATONIN 5 MG TABLET PO SCH (20:55)
[2023-04-01] MEDS: ZOLPIDEM TARTRATE 10 MG TABLET PO PRN (20:56)
[2023-04-01 21:37] VITALS: BP 122/78; PULSE 85; RESP 19; TEMP 97.4
[2023-04-02] MEDS: BusPIRone HCL 5 MG TABLET PO SCH ×3 (07:59→20:31)
[2023-04-02] MEDS: QUEtiapine FUMARATE 100 MG TABLET PO SCH (08:00)
[2023-04-02] MEDS: DIVALPROEX SODIUM 500 MG DR TABLET PO SCH ×2 (08:01→20:31)
[2023-04-02] MEDS: CITALOPRAM HYDROBROMIDE 10 MG TABLET PO SCH (08:01)
[2023-04-02 09:25] VITALS: BP 118/73; PULSE 90; RESP 16; TEMP 98.5
[2023-04-02 20:27] VITALS: BP 129/87; PULSE 87; RESP 18; TEMP 97.8; O2SAT 97
[2023-04-02] MEDS: QUEtiapine FUMARATE 300 MG TABLET PO SCH (20:31)
[2023-04-02] MEDS: MELATONIN 5 MG TABLET PO SCH (20:31)
[2023-04-03] MEDS: CITALOPRAM HYDROBROMIDE 10 MG TABLET PO SCH (08:12)
[2023-04-03] MEDS: BusPIRone HCL 5 MG TABLET PO SCH ×3 (08:13→20:18)
[2023-04-03] MEDS: DIVALPROEX SODIUM 500 MG DR TABLET PO SCH ×2 (08:13→20:18)
[2023-04-03] MEDS: QUEtiapine FUMARATE 100 MG TABLET PO SCH (08:13)
[2023-04-03 08:49] VITALS: BP 108/65; PULSE 83; RESP 18; TEMP 97.5; O2SAT 98
[2023-04-03 10:51] VITALS: BP 113/68; PULSE 78; RESP 18; TEMP 98.2; O2SAT 97
[2023-04-03] MEDS: ACETAMINOPHEN 325 MG TABLET PO PRN (10:51)
[2023-04-03] MEDS ORDERED: SELENIUM SULFIDE 1% 207 ML SHAMPOO TP ONE (17:15)
[2023-04-03 20:03] VITALS: BP 111/70; PULSE 76; RESP 18; TEMP 98; O2SAT 96
[2023-04-03] MEDS: MELATONIN 5 MG TABLET PO SCH (20:18)
[2023-04-03] MEDS: QUEtiapine FUMARATE 300 MG TABLET PO SCH (20:18)
[2023-04-03] MEDS: LORazepam 2 MG TABLET PO PRN (22:19)
[2023-04-03] MEDS: ZOLPIDEM TARTRATE 10 MG TABLET PO PRN (23:11)
[2023-04-04] MEDS: DIVALPROEX SODIUM 500 MG DR TABLET PO SCH ×2 (08:07→20:35)
[2023-04-04] MEDS: BusPIRone HCL 5 MG TABLET PO SCH ×3 (08:07→20:34)
[2023-04-04] MEDS: QUEtiapine FUMARATE 100 MG TABLET PO SCH (08:08)
[2023-04-04] MEDS: CITALOPRAM HYDROBROMIDE 10 MG TABLET PO SCH (08:08)
[2023-04-04 09:05] VITALS: BP 138/95; PULSE 98; RESP 18; TEMP 97.6; O2SAT 99
[2023-04-04 17:15] VITALS: BP 132/84; PULSE 84; RESP 18; TEMP 97.4
[2023-04-04] MEDS: IBUPROFEN 400 MG TABLET PO PRN (17:15)
[2023-04-04 18:15] VITALS: BP 128/76; PULSE 82; RESP 18; TEMP 97.6
[2023-04-04 20:06] VITALS: BP 130/84; PULSE 88; RESP 18; TEMP 97.8; O2SAT 98
[2023-04-04] MEDS: QUEtiapine FUMARATE 300 MG TABLET PO SCH (20:34)
[2023-04-04] MEDS: MELATONIN 5 MG TABLET PO SCH (20:35)
[2023-04-05 08:30] VITALS: BP 137/77; PULSE 87; RESP 17; TEMP 98
[2023-04-05] MEDS: QUEtiapine FUMARATE 100 MG TABLET PO SCH (08:33)
[2023-04-05] MEDS: BusPIRone HCL 5 MG TABLET PO SCH ×3 (08:33→20:51)
[2023-04-05] MEDS: CITALOPRAM HYDROBROMIDE 10 MG TABLET PO SCH (08:33)
[2023-04-05] MEDS: DIVALPROEX SODIUM 500 MG DR TABLET PO SCH ×2 (08:33→20:52)
[2023-04-05] MEDS: HYDROCORTISONE 1% 30 GM CREAM TP PRN (18:10)
[2023-04-05 20:02] VITALS: BP 130/70; PULSE 85; RESP 17; TEMP 97.9; O2SAT 97
[2023-04-05] MEDS: MELATONIN 5 MG TABLET PO SCH (20:52)
[2023-04-05] MEDS: QUEtiapine FUMARATE 300 MG TABLET PO SCH (20:52)
[2023-04-06 08:16] VITALS: BP 110/63; PULSE 80; RESP 18; TEMP 97.6; O2SAT 98
[2023-04-06] MEDS: CITALOPRAM HYDROBROMIDE 10 MG TABLET PO SCH (08:46)
[2023-04-06] MEDS: BusPIRone HCL 5 MG TABLET PO SCH ×3 (08:46→21:02)
[2023-04-06] MEDS: QUEtiapine FUMARATE 100 MG TABLET PO SCH (08:46)
[2023-04-06] MEDS: DIVALPROEX SODIUM 500 MG DR TABLET PO SCH ×2 (08:46→21:01)
[2023-04-06 11:35] VITALS: BP 116/60; PULSE 78; RESP 18; TEMP 97.9; O2SAT 99
[2023-04-06] MEDS: ACETAMINOPHEN 325 MG TABLET PO PRN (11:35)
[2023-04-06 20:36] VITALS: BP 135/89; PULSE 93; RESP 18; TEMP 97.5; O2SAT 100
[2023-04-06] MEDS: MELATONIN 5 MG TABLET PO SCH (21:02)
[2023-04-06] MEDS: QUEtiapine FUMARATE 300 MG TABLET PO SCH (21:02)
[2023-04-06] MEDS: ZOLPIDEM TARTRATE 10 MG TABLET PO PRN (21:09)
[2023-04-07] MEDS: DIVALPROEX SODIUM 500 MG DR TABLET PO SCH ×2 (08:23→20:45)
[2023-04-07] MEDS: QUEtiapine FUMARATE 100 MG TABLET PO SCH (08:23)
[2023-04-07] MEDS: CITALOPRAM HYDROBROMIDE 10 MG TABLET PO SCH (08:23)
[2023-04-07] MEDS: BusPIRone HCL 5 MG TABLET PO SCH ×3 (08:23→20:45)
[2023-04-07 08:47] VITALS: BP 120/77; PULSE 102; RESP 18; TEMP 97.2; O2SAT 96
[2023-04-07] MEDS: ACETAMINOPHEN 325 MG TABLET PO PRN ×2 (08:47→22:30)
[2023-04-07] MEDS: LORazepam 2 MG TABLET PO PRN (16:58)
[2023-04-07] MEDS: QUEtiapine FUMARATE 300 MG TABLET PO SCH (20:44)
[2023-04-07] MEDS: MELATONIN 5 MG TABLET PO SCH (20:45)
[2023-04-07 20:56] VITALS: BP 128/82; PULSE 82; RESP 17; TEMP 98; O2SAT 98
[2023-04-07 22:25] VITALS: BP 119/80; PULSE 76; RESP 18; TEMP 97.8; O2SAT 97
[2023-04-07] MEDS: ZOLPIDEM TARTRATE 10 MG TABLET PO PRN (22:30)
[2023-04-07 23:30] VITALS: RESP 18
[2023-04-08] MEDS: QUEtiapine FUMARATE 100 MG TABLET PO SCH (08:04)
[2023-04-08] MEDS: DIVALPROEX SODIUM 500 MG DR TABLET PO SCH ×2 (08:04→20:51)
[2023-04-08] MEDS: CITALOPRAM HYDROBROMIDE 10 MG TABLET PO SCH (08:05)
[2023-04-08] MEDS: BusPIRone HCL 5 MG TABLET PO SCH ×3 (08:05→20:51)
[2023-04-08 13:26] VITALS: BP 130/83; PULSE 78; RESP 17; TEMP 98; O2SAT 0
[2023-04-08 17:16] VITALS: BP 126/78; PULSE 74; RESP 18; TEMP 97.6; O2SAT 0
[2023-04-08] MEDS: HYDROCORTISONE 1% 30 GM CREAM TP PRN (17:16)
[2023-04-08] MEDS: ACETAMINOPHEN 325 MG TABLET PO PRN (17:16)
[2023-04-08 18:16] VITALS: BP 124/76; PULSE 72; RESP 18; TEMP 97.4
[2023-04-08] MEDS: MELATONIN 5 MG TABLET PO SCH (20:51)
[2023-04-08] MEDS: QUEtiapine FUMARATE 300 MG TABLET PO SCH (20:51)
[2023-04-08] MEDS: ZOLPIDEM TARTRATE 10 MG TABLET PO PRN (20:51)
[2023-04-08 21:29] VITALS: BP 129/72; PULSE 80; RESP 19; TEMP 97.6; O2SAT 99
[2023-04-09] MEDS: MAG HYDROX/AL HYDROX/SIMETH ES 30 ML SUSPENSION UDCUP PO PRN (01:29)
[2023-04-09 08:17] VITALS: BP 128/80; PULSE 100; RESP 18; TEMP 98; O2SAT 98
[2023-04-09] MEDS: QUEtiapine FUMARATE 100 MG TABLET PO SCH (08:32)
[2023-04-09] MEDS: BusPIRone HCL 5 MG TABLET PO SCH ×3 (08:32→20:49)
[2023-04-09] MEDS: CITALOPRAM HYDROBROMIDE 10 MG TABLET PO SCH (08:33)
[2023-04-09] MEDS: DIVALPROEX SODIUM 500 MG DR TABLET PO SCH ×2 (08:33→20:40)
[2023-04-09] MEDS: LORazepam 2 MG TABLET PO PRN ×2 (08:34→13:24)
[2023-04-09 11:21] VITALS: BP 139/80; PULSE 90; RESP 18; TEMP 97.9; O2SAT 98
[2023-04-09] MEDS: ACETAMINOPHEN 325 MG TABLET PO PRN (11:21)
[2023-04-09] MEDS: HALOPERIDOL 5 MG TABLET PO PRN (13:24)
[2023-04-09] MEDS: DICLOFENAC SODIUM 1% 100 GM GEL [4GM] TP PRN (20:12)
[2023-04-09 20:14] VITALS: BP 128/82; PULSE 86; RESP 19; TEMP 97.3; O2SAT 97
[2023-04-09] MEDS: QUEtiapine FUMARATE 300 MG TABLET PO SCH (20:40)
[2023-04-09] MEDS: MELATONIN 5 MG TABLET PO SCH (20:40)
[2023-04-09] MEDS: ZOLPIDEM TARTRATE 10 MG TABLET PO PRN (21:52)
[2023-04-10] MEDS: BusPIRone HCL 5 MG TABLET PO SCH ×3 (08:50→20:19)
[2023-04-10] MEDS: DIVALPROEX SODIUM 500 MG DR TABLET PO SCH ×2 (08:50→20:19)
[2023-04-10] MEDS: QUEtiapine FUMARATE 100 MG TABLET PO SCH (08:50)
[2023-04-10] MEDS: CITALOPRAM HYDROBROMIDE 10 MG TABLET PO SCH (08:50)
[2023-04-10] MEDS: DICLOFENAC SODIUM 1% 100 GM GEL [4GM] TP PRN (10:52)
[2023-04-10 12:24] VITALS: RESP 18
[2023-04-10 20:13] VITALS: BP 128/71; PULSE 79; RESP 19; TEMP 97.8; O2SAT 100
[2023-04-10] MEDS: QUEtiapine FUMARATE 300 MG TABLET PO SCH (20:19)
[2023-04-10] MEDS: MELATONIN 5 MG TABLET PO SCH (20:19)
[2023-04-11 08:47] VITALS: BP 125/76; PULSE 101; RESP 18; TEMP 97.7; O2SAT 98
[2023-04-11] MEDS: QUEtiapine FUMARATE 100 MG TABLET PO SCH (08:54)
[2023-04-11] MEDS: CITALOPRAM HYDROBROMIDE 10 MG TABLET PO SCH (08:54)
[2023-04-11] MEDS: DIVALPROEX SODIUM 500 MG DR TABLET PO SCH ×2 (08:54→20:57)
[2023-04-11] MEDS: BusPIRone HCL 5 MG TABLET PO SCH ×3 (08:54→20:57)
[2023-04-11] MEDS: LORazepam 2 MG TABLET PO PRN ×2 (08:56→16:03)
[2023-04-11 14:22] VITALS: BP 112/73; PULSE 78; RESP 17; TEMP 98
[2023-04-11] MEDS: HYDROCORTISONE 1% 30 GM CREAM TP PRN (14:22)
[2023-04-11] MEDS: DICLOFENAC SODIUM 1% 100 GM GEL [4GM] TP PRN (14:22)
[2023-04-11] MEDS: IBUPROFEN 400 MG TABLET PO PRN (14:22)
[2023-04-11 15:22] VITALS: BP 114/71; RESP 17; TEMP 98.1
[2023-04-11 20:33] VITALS: BP 116/72; PULSE 75; RESP 18; TEMP 98
[2023-04-11] MEDS: QUEtiapine FUMARATE 300 MG TABLET PO SCH (20:57)
[2023-04-11] MEDS: MELATONIN 5 MG TABLET PO SCH (20:57)
[2023-04-12] MEDS: ZOLPIDEM TARTRATE 10 MG TABLET PO PRN (01:24)
[2023-04-12 08:24] VITALS: BP 125/82; PULSE 91; RESP 18; TEMP 97.7; O2SAT 98
[2023-04-12] MEDS: BusPIRone HCL 5 MG TABLET PO SCH ×3 (08:29→20:55)
[2023-04-12] MEDS: CITALOPRAM HYDROBROMIDE 10 MG TABLET PO SCH (08:29)
[2023-04-12] MEDS: DIVALPROEX SODIUM 500 MG DR TABLET PO SCH ×2 (08:29→20:55)
[2023-04-12] MEDS: QUEtiapine FUMARATE 100 MG TABLET PO SCH (08:29)
[2023-04-12 12:12] VITALS: BP 116/78; PULSE 88; RESP 18
[2023-04-12] MEDS: DICLOFENAC SODIUM 1% 100 GM GEL [4GM] TP PRN (12:14)
[2023-04-12 13:14] VITALS: RESP 18
[2023-04-12 20:37] VITALS: BP 143/93; PULSE 90; RESP 19; TEMP 98.1; O2SAT 98
[2023-04-12] MEDS: QUEtiapine FUMARATE 300 MG TABLET PO SCH (20:55)
[2023-04-12] MEDS: MELATONIN 5 MG TABLET PO SCH (20:55)
[2023-04-12] MEDS: MAG HYDROX/AL HYDROX/SIMETH ES 30 ML SUSPENSION UDCUP PO PRN (20:55)
[2023-04-13] MEDS: ZOLPIDEM TARTRATE 10 MG TABLET PO PRN (02:20)
[2023-04-13 08:22] VITALS: BP 133/81; PULSE 100; RESP 18; TEMP 98; O2SAT 98
[2023-04-13] MEDS: CITALOPRAM HYDROBROMIDE 10 MG TABLET PO SCH (08:47)
[2023-04-13] MEDS: DIVALPROEX SODIUM 500 MG DR TABLET PO SCH ×2 (08:47→20:37)
[2023-04-13] MEDS: BusPIRone HCL 5 MG TABLET PO SCH ×3 (08:47→20:37)
[2023-04-13] MEDS: QUEtiapine FUMARATE 100 MG TABLET PO SCH (08:47)
[2023-04-13] MEDS: LORazepam 2 MG TABLET PO PRN (12:25)
[2023-04-13] MEDS ORDERED: TUBERCULIN, PURIFIED PROTEIN DERIVATIVE 5 TU/0.1 ML SYRINGE ID ONE (16:30)
[2023-04-13] MEDS: QUEtiapine FUMARATE 300 MG TABLET PO SCH (20:37)
[2023-04-13] MEDS: MELATONIN 5 MG TABLET PO SCH (20:38)
[2023-04-13 22:11] VITALS: BP 132/79; PULSE 89; RESP 18; TEMP 97.5; O2SAT 97
[2023-04-14] MEDS: QUEtiapine FUMARATE 100 MG TABLET PO SCH (08:21)
[2023-04-14] MEDS: CITALOPRAM HYDROBROMIDE 10 MG TABLET PO SCH (08:22)
[2023-04-14] MEDS: DIVALPROEX SODIUM 500 MG DR TABLET PO SCH ×2 (08:22→20:48)
[2023-04-14] MEDS: BusPIRone HCL 5 MG TABLET PO SCH ×3 (08:24→20:48)
[2023-04-14 09:56] VITALS: BP 129/95; PULSE 84; RESP 19; TEMP 96.8; O2SAT 98
[2023-04-14] MEDS: MELATONIN 5 MG TABLET PO SCH (20:48)
[2023-04-14] MEDS: QUEtiapine FUMARATE 300 MG TABLET PO SCH (20:48)
[2023-04-14 22:40] VITALS: BP 126/73; PULSE 90; RESP 18; TEMP 96.7; O2SAT 97
[2023-04-15] MEDS: BusPIRone HCL 5 MG TABLET PO SCH ×3 (08:20→20:37)
[2023-04-15] MEDS: QUEtiapine FUMARATE 100 MG TABLET PO SCH (08:20)
[2023-04-15] MEDS: CITALOPRAM HYDROBROMIDE 10 MG TABLET PO SCH (08:20)
[2023-04-15] MEDS: DIVALPROEX SODIUM 500 MG DR TABLET PO SCH ×2 (08:20→20:37)
[2023-04-15 08:46] VITALS: BP 118/67; PULSE 86; RESP 18; TEMP 97.9; O2SAT 99
[2023-04-15 09:03] VITALS: RESP 18; TEMP 97.6
[2023-04-15] MEDS: IBUPROFEN 400 MG TABLET PO PRN (09:03)
[2023-04-15 10:03] VITALS: BP 122/74; PULSE 84; RESP 18; TEMP 97.5
[2023-04-15] MEDS: HYDROCORTISONE 1% 30 GM CREAM TP PRN (14:05)
[2023-04-15 20:17] VITALS: BP 144/86; PULSE 97; RESP 20; TEMP 97
[2023-04-15] MEDS: MELATONIN 5 MG TABLET PO SCH (20:37)
[2023-04-15] MEDS: QUEtiapine FUMARATE 300 MG TABLET PO SCH (20:37)
[2023-04-16 08:03] VITALS: BP 144/95; PULSE 105; RESP 18; TEMP 97.6; O2SAT 98
[2023-04-16] MEDS: DIVALPROEX SODIUM 500 MG DR TABLET PO SCH ×2 (08:06→20:38)
[2023-04-16] MEDS: BusPIRone HCL 5 MG TABLET PO SCH ×3 (08:06→20:38)
[2023-04-16] MEDS: CITALOPRAM HYDROBROMIDE 10 MG TABLET PO SCH (08:07)
[2023-04-16] MEDS: QUEtiapine FUMARATE 100 MG TABLET PO SCH (08:07)
[2023-04-16 09:12] VITALS: BP 144/95; PULSE 105; RESP 18; TEMP 97.6; O2SAT 98
[2023-04-16] MEDS: DICLOFENAC SODIUM 1% 100 GM GEL [4GM] TP PRN (09:12)
[2023-04-16] MEDS: MELATONIN 5 MG TABLET PO SCH (20:38)
[2023-04-16] MEDS: QUEtiapine FUMARATE 300 MG TABLET PO SCH (20:38)
[2023-04-16 22:50] VITALS: BP 130/90; PULSE 90; RESP 19; TEMP 98; O2SAT 98
[2023-04-17] MEDS: ZOLPIDEM TARTRATE 10 MG TABLET PO PRN (00:19)
[2023-04-17 08:30] VITALS: BP 153/102; PULSE 73; RESP 17; TEMP 98; O2SAT 98
[2023-04-17] MEDS: CITALOPRAM HYDROBROMIDE 10 MG TABLET PO SCH (08:40)
[2023-04-17] MEDS: QUEtiapine FUMARATE 100 MG TABLET PO SCH (08:41)
[2023-04-17] MEDS: DIVALPROEX SODIUM 500 MG DR TABLET PO SCH ×2 (08:41→20:35)
[2023-04-17] MEDS: BusPIRone HCL 5 MG TABLET PO SCH ×3 (08:41→20:36)
[2023-04-17 17:24] VITALS: BP 145/89; PULSE 78; RESP 20; TEMP 98
[2023-04-17] MEDS: IBUPROFEN 400 MG TABLET PO PRN (17:27)
[2023-04-17] MEDS: MELATONIN 5 MG TABLET PO SCH (20:35)
[2023-04-17] MEDS: QUEtiapine FUMARATE 300 MG TABLET PO SCH (20:36)
[2023-04-17 21:40] VITALS: BP 139/76; PULSE 75; RESP 18; TEMP 97.9
[2023-04-18] VITALS (8 sets, daily range): BP systolic 136–147; BP diastolic 89–99; PULSE 81–89; RESP 17–18; TEMP 97.6–98.1; O2SAT 97–98
[2023-04-18] MEDS: BusPIRone HCL 5 MG TABLET PO SCH ×3 (08:53→20:32)
[2023-04-18] MEDS: CITALOPRAM HYDROBROMIDE 10 MG TABLET PO SCH (08:54)
[2023-04-18] MEDS: QUEtiapine FUMARATE 100 MG TABLET PO SCH (08:55)
[2023-04-18] MEDS: DIVALPROEX SODIUM 500 MG DR TABLET PO SCH ×2 (08:55→20:32)
[2023-04-18] MEDS: IBUPROFEN 400 MG TABLET PO PRN (10:33)
[2023-04-18 11:27] LABS: COVID AG,FIA SOURCE NASAL SWAB
[2023-04-18 12:27] LABS: SARS-COV2 (COVID) ANTIGEN,FIA Negative (Negative)
[2023-04-18] MEDS: QUEtiapine FUMARATE 300 MG TABLET PO SCH (20:32)
[2023-04-18] MEDS: ZOLPIDEM TARTRATE 10 MG TABLET PO PRN (20:32)
[2023-04-18] MEDS: MELATONIN 5 MG TABLET PO SCH (21:00)
[2023-04-19] VITALS (8 sets, daily range): BP systolic 116–127; BP diastolic 71–81; PULSE 77–93; RESP 17–18; TEMP 97.2–98.2; O2SAT 98
[2023-04-19] MEDS: BusPIRone HCL 5 MG TABLET PO SCH ×3 (08:56→21:08)
[2023-04-19] MEDS: CITALOPRAM HYDROBROMIDE 10 MG TABLET PO SCH (08:56)
[2023-04-19] MEDS: DIVALPROEX SODIUM 500 MG DR TABLET PO SCH ×2 (08:56→21:07)
[2023-04-19] MEDS: QUEtiapine FUMARATE 100 MG TABLET PO SCH (08:56)
[2023-04-19] MEDS: IBUPROFEN 400 MG TABLET PO PRN (18:32)
[2023-04-19] MEDS: QUEtiapine FUMARATE 300 MG TABLET PO SCH (21:07)
[2023-04-19] MEDS: MELATONIN 5 MG TABLET PO SCH (21:08)
[2023-04-19] MEDS: HYDROCORTISONE 1% 30 GM CREAM TP PRN (21:16)
[2023-04-20] VITALS (7 sets, daily range): BP systolic 114–131; BP diastolic 64–75; PULSE 63–100; RESP 17–19; TEMP 97.8–98.3; O2SAT 97
[2023-04-20] MEDS: ACETAMINOPHEN 325 MG TABLET PO PRN (07:59)
[2023-04-20] MEDS: DIVALPROEX SODIUM 500 MG DR TABLET PO SCH ×2 (08:00→21:26)
[2023-04-20] MEDS: QUEtiapine FUMARATE 100 MG TABLET PO SCH (08:00)
[2023-04-20] MEDS: CITALOPRAM HYDROBROMIDE 10 MG TABLET PO SCH (08:00)
[2023-04-20] MEDS: BusPIRone HCL 5 MG TABLET PO SCH ×3 (08:02→21:26)
[2023-04-20] MEDS: QUEtiapine FUMARATE 300 MG TABLET PO SCH (21:26)
[2023-04-21 00:09] VITALS: RESP 18
[2023-04-21 04:03] VITALS: RESP 17
[2023-04-21] MEDS: QUEtiapine FUMARATE 100 MG TABLET PO SCH (08:22)
[2023-04-21] MEDS: DIVALPROEX SODIUM 500 MG DR TABLET PO SCH ×2 (08:22→20:22)
[2023-04-21] MEDS: CITALOPRAM HYDROBROMIDE 10 MG TABLET PO SCH (08:22)
[2023-04-21] MEDS: BusPIRone HCL 5 MG TABLET PO SCH (08:23)
[2023-04-21] MEDS: IBUPROFEN 400 MG TABLET PO PRN (08:37)
[2023-04-21 08:38] VITALS: BP 114/62; PULSE 69; RESP 16; TEMP 98.3
[2023-04-21 13:23] VITALS: RESP 18; TEMP 98.1
[2023-04-21 16:25] VITALS: TEMP 98.6
[2023-04-21] MEDS: BusPIRone HCL 10 MG TABLET PO SCH ×2 (16:28→20:22)
[2023-04-21] MEDS: HYDROCORTISONE 1% 30 GM CREAM TP PRN (16:31)
[2023-04-21 19:06] LABS: COVID AG,FIA SOURCE NASAL SWAB
[2023-04-21 19:33] LABS: SARS-COV2 (COVID) ANTIGEN,FIA Positive (Negative)
[2023-04-21 20:00] VITALS: BP 130/85; PULSE 79; RESP 19; TEMP 97.9; O2SAT 97
[2023-04-21] MEDS: MELATONIN 5 MG TABLET PO PRN (20:19)
[2023-04-21] MEDS: QUEtiapine FUMARATE 300 MG TABLET PO SCH (20:22)
[2023-04-22] VITALS (8 sets, daily range): BP systolic 123–140; BP diastolic 59–80; PULSE 78–89; RESP 16–20; TEMP 97.7–98.9; O2SAT 96–99
[2023-04-22] MEDS: QUEtiapine FUMARATE 100 MG TABLET PO SCH (08:22)
[2023-04-22] MEDS: DIVALPROEX SODIUM 500 MG DR TABLET PO SCH ×2 (08:22→20:02)
[2023-04-22] MEDS: BusPIRone HCL 10 MG TABLET PO SCH ×3 (08:22→20:02)
[2023-04-22] MEDS: CITALOPRAM HYDROBROMIDE 10 MG TABLET PO SCH (08:22)
[2023-04-22] MEDS: BENZOCAINE/MENTHOL LOZENGE PO PRN ×2 (08:22→14:25)
[2023-04-22] MEDS: SODIUM CHLORIDE 0.65% 44 ML NASAL SPRAY NASAL PRN (18:34)
[2023-04-22] MEDS: IBUPROFEN 400 MG TABLET PO PRN (18:48)
[2023-04-22] MEDS: QUEtiapine FUMARATE 300 MG TABLET PO SCH (20:02)
[2023-04-23] VITALS (8 sets, daily range): BP systolic 115–124; BP diastolic 58–73; PULSE 76–106; RESP 16–19; TEMP 97–100.6; O2SAT 97
[2023-04-23] MEDS: QUEtiapine FUMARATE 100 MG TABLET PO SCH (08:59)
[2023-04-23] MEDS: DIVALPROEX SODIUM 500 MG DR TABLET PO SCH ×2 (08:59→20:18)
[2023-04-23] MEDS: BusPIRone HCL 10 MG TABLET PO SCH ×3 (08:59→20:18)
[2023-04-23] MEDS: CITALOPRAM HYDROBROMIDE 10 MG TABLET PO SCH (08:59)
[2023-04-23] MEDS: ACETAMINOPHEN 325 MG TABLET PO PRN (09:13)
[2023-04-23] MEDS: BENZOCAINE/MENTHOL LOZENGE PO PRN (09:15)
[2023-04-23] MEDS: DEXAMETHASONE 4 MG TABLET PO SCH (14:33)
[2023-04-23] MEDS: AZITHROMYCIN 500 MG TABLET PO SCH (14:33)
[2023-04-23] MEDS: GuaiFENesin/D-METHORPHAN [SUGAR-FREE] 200-20MG/10 ML SYRUP UDCUP PO PRN (15:33)
[2023-04-23] MEDS: QUEtiapine FUMARATE 300 MG TABLET PO SCH (20:18)
[2023-04-24] MEDS: DEXAMETHASONE 4 MG TABLET PO SCH (08:04)
[2023-04-24] MEDS: BusPIRone HCL 10 MG TABLET PO SCH ×3 (08:04→20:45)
[2023-04-24] MEDS: QUEtiapine FUMARATE 100 MG TABLET PO SCH (08:04)
[2023-04-24] MEDS: DIVALPROEX SODIUM 500 MG DR TABLET PO SCH ×2 (08:04→20:45)
[2023-04-24] MEDS: AZITHROMYCIN 500 MG TABLET PO SCH (08:05)
[2023-04-24] MEDS: CITALOPRAM HYDROBROMIDE 10 MG TABLET PO SCH (08:05)
[2023-04-24 08:57] VITALS: BP 118/69; PULSE 78; RESP 18; TEMP 97.9; O2SAT 97
[2023-04-24 12:44] VITALS: RESP 18; TEMP 98; O2SAT 98
[2023-04-24] MEDS: BENZOCAINE/MENTHOL LOZENGE PO PRN ×2 (13:51→20:57)
[2023-04-24 16:24] VITALS: RESP 18; TEMP 97.9
[2023-04-24] MEDS: ACETAMINOPHEN 325 MG TABLET PO PRN (17:22)
[2023-04-24 18:22] VITALS: RESP 18
[2023-04-24] MEDS: QUEtiapine FUMARATE 300 MG TABLET PO SCH (20:45)
[2023-04-24] MEDS: MELATONIN 5 MG TABLET PO PRN (20:55)
[2023-04-24 21:39] VITALS: BP 135/87; PULSE 98; RESP 17; TEMP 97.7; O2SAT 97
[2023-04-25 01:24] VITALS: RESP 18; TEMP 98.2
[2023-04-25 05:00] VITALS: RESP 17; TEMP 98.1
[2023-04-25] MEDS: BusPIRone HCL 10 MG TABLET PO SCH ×3 (08:02→20:49)
[2023-04-25] MEDS: AZITHROMYCIN 500 MG TABLET PO SCH (08:02)
[2023-04-25] MEDS: DEXAMETHASONE 4 MG TABLET PO SCH (08:02)
[2023-04-25] MEDS: QUEtiapine FUMARATE 100 MG TABLET PO SCH (08:02)
[2023-04-25] MEDS: DIVALPROEX SODIUM 500 MG DR TABLET PO SCH ×2 (08:03→20:49)
[2023-04-25] MEDS: CITALOPRAM HYDROBROMIDE 10 MG TABLET PO SCH (08:03)
[2023-04-25 08:31] VITALS: BP 91/66; PULSE 97; RESP 17; TEMP 97.9; O2SAT 98
[2023-04-25] MEDS: BENZOCAINE/MENTHOL LOZENGE PO PRN (11:16)
[2023-04-25 12:20] VITALS: RESP 18; TEMP 98.2
[2023-04-25] MEDS: GuaiFENesin/D-METHORPHAN [SUGAR-FREE] 200-20MG/10 ML SYRUP UDCUP PO PRN (14:09)
[2023-04-25 16:20] VITALS: RESP 18; TEMP 97.7
[2023-04-25] MEDS: IBUPROFEN 400 MG TABLET PO PRN (17:10)
[2023-04-25 20:24] VITALS: BP 119/73; PULSE 82; RESP 18; TEMP 97.6
[2023-04-25] MEDS: QUEtiapine FUMARATE 300 MG TABLET PO SCH (20:49)
[2023-04-26] MEDS: MELATONIN 5 MG TABLET PO PRN ×2 (00:27→21:11)
[2023-04-26 05:32] VITALS: TEMP 97.9
[2023-04-26] MEDS: BusPIRone HCL 10 MG TABLET PO SCH ×3 (08:03→21:11)
[2023-04-26] MEDS: AZITHROMYCIN 500 MG TABLET PO SCH (08:03)
[2023-04-26] MEDS: CITALOPRAM HYDROBROMIDE 10 MG TABLET PO SCH (08:03)
[2023-04-26] MEDS: DIVALPROEX SODIUM 500 MG DR TABLET PO SCH ×2 (08:03→21:11)
[2023-04-26] MEDS: DEXAMETHASONE 4 MG TABLET PO SCH (08:03)
[2023-04-26] MEDS: QUEtiapine FUMARATE 100 MG TABLET PO SCH (08:03)
[2023-04-26 08:35] VITALS: BP 110/59; PULSE 80; RESP 18; TEMP 97.6; O2SAT 96
[2023-04-26 11:29] LABS: COVID AG,FIA SOURCE NASAL SWAB
[2023-04-26 12:08] LABS: SARS-COV2 (COVID) ANTIGEN,FIA Positive (Negative)
[2023-04-26 13:07] VITALS: RESP 18; TEMP 98.3
[2023-04-26] MEDS: SODIUM CHLORIDE 0.65% 44 ML NASAL SPRAY NASAL PRN (16:30)
[2023-04-26 16:32] VITALS: RESP 18; TEMP 98.4
[2023-04-26] MEDS: IBUPROFEN 400 MG TABLET PO PRN (16:36)
[2023-04-26 20:16] VITALS: BP 154/84; PULSE 81; RESP 18; TEMP 97.8
[2023-04-26] MEDS: QUEtiapine FUMARATE 300 MG TABLET PO SCH (21:10)
[2023-04-27] VITALS (7 sets, daily range): BP systolic 126–139; BP diastolic 62–87; PULSE 68–90; RESP 17–18; TEMP 97.6–98.2; O2SAT 98
[2023-04-27] MEDS: DIVALPROEX SODIUM 500 MG DR TABLET PO SCH ×2 (08:38→20:58)
[2023-04-27] MEDS: CITALOPRAM HYDROBROMIDE 10 MG TABLET PO SCH (08:38)
[2023-04-27] MEDS: QUEtiapine FUMARATE 100 MG TABLET PO SCH (08:38)
[2023-04-27] MEDS: BusPIRone HCL 10 MG TABLET PO SCH ×3 (08:39→20:58)
[2023-04-27] MEDS: DEXAMETHASONE 4 MG TABLET PO SCH (08:40)
[2023-04-27] MEDS: AZITHROMYCIN 500 MG TABLET PO SCH (08:40)
[2023-04-27] MEDS: SODIUM CHLORIDE 0.65% 44 ML NASAL SPRAY NASAL PRN (11:00)
[2023-04-27] MEDS: ACETAMINOPHEN 325 MG TABLET PO PRN (12:52)
[2023-04-27] MEDS: BENZOCAINE/MENTHOL LOZENGE PO PRN (14:08)
[2023-04-27] MEDS ORDERED: SELENIUM SULFIDE 1% 207 ML SHAMPOO TP ONE (16:00)
[2023-04-27] MEDS: QUEtiapine FUMARATE 300 MG TABLET PO SCH (20:59)
[2023-04-27] MEDS: MELATONIN 5 MG TABLET PO PRN (20:59)
[2023-04-28 01:36] VITALS: RESP 18
[2023-04-28 04:11] VITALS: RESP 18
[2023-04-28] MEDS: CITALOPRAM HYDROBROMIDE 10 MG TABLET PO SCH (08:58)
[2023-04-28] MEDS: BusPIRone HCL 10 MG TABLET PO SCH ×3 (08:58→20:04)
[2023-04-28] MEDS: AZITHROMYCIN 500 MG TABLET PO SCH (08:58)
[2023-04-28] MEDS: DIVALPROEX SODIUM 500 MG DR TABLET PO SCH ×2 (08:58→20:04)
[2023-04-28] MEDS: QUEtiapine FUMARATE 100 MG TABLET PO SCH (08:58)
[2023-04-28] MEDS: DEXAMETHASONE 4 MG TABLET PO SCH (08:59)
[2023-04-28 10:19] VITALS: BP 130/85; PULSE 85; RESP 18; TEMP 97.6; O2SAT 97
[2023-04-28 12:33] VITALS: TEMP 97.6
[2023-04-28] MEDS: BENZOCAINE/MENTHOL LOZENGE PO PRN (13:52)
[2023-04-28 16:03] VITALS: RESP 17; TEMP 97.8
[2023-04-28] MEDS: IBUPROFEN 400 MG TABLET PO PRN (19:57)
[2023-04-28 20:01] VITALS: BP 128/76; PULSE 67; RESP 18; TEMP 97.8; O2SAT 97
[2023-04-28] MEDS: QUEtiapine FUMARATE 300 MG TABLET PO SCH (20:04)
[2023-04-29] VITALS (8 sets, daily range): BP systolic 114–140; BP diastolic 60–76; PULSE 74–78; RESP 17–18; TEMP 97.6–98.2; O2SAT 97
[2023-04-29] MEDS: CITALOPRAM HYDROBROMIDE 10 MG TABLET PO SCH (08:22)
[2023-04-29] MEDS: AZITHROMYCIN 500 MG TABLET PO SCH (08:22)
[2023-04-29] MEDS: BusPIRone HCL 10 MG TABLET PO SCH ×3 (08:22→20:05)
[2023-04-29] MEDS: QUEtiapine FUMARATE 100 MG TABLET PO SCH (08:22)
[2023-04-29] MEDS: DIVALPROEX SODIUM 500 MG DR TABLET PO SCH ×2 (08:22→20:05)
[2023-04-29] MEDS: DEXAMETHASONE 4 MG TABLET PO SCH (08:23)
[2023-04-29] MEDS: BENZOCAINE/MENTHOL LOZENGE PO PRN (15:03)
[2023-04-29] MEDS: QUEtiapine FUMARATE 300 MG TABLET PO SCH (20:05)
[2023-04-29] MEDS: MELATONIN 5 MG TABLET PO PRN (20:06)
[2023-04-29] MEDS: IBUPROFEN 400 MG TABLET PO PRN (20:07)
[2023-04-30] VITALS (7 sets, daily range): BP systolic 118–152; BP diastolic 62–83; PULSE 76–89; RESP 16–18; TEMP 96.7–98; O2SAT 96–98
[2023-04-30] MEDS: DEXAMETHASONE 4 MG TABLET PO SCH (08:14)
[2023-04-30] MEDS: AZITHROMYCIN 500 MG TABLET PO SCH (08:14)
[2023-04-30] MEDS: BusPIRone HCL 10 MG TABLET PO SCH ×3 (08:15→20:31)
[2023-04-30] MEDS: CITALOPRAM HYDROBROMIDE 10 MG TABLET PO SCH (08:15)
[2023-04-30] MEDS: QUEtiapine FUMARATE 100 MG TABLET PO SCH (08:15)
[2023-04-30] MEDS: DIVALPROEX SODIUM 500 MG DR TABLET PO SCH ×2 (08:15→20:31)
[2023-04-30] MEDS: SODIUM CHLORIDE 0.65% 44 ML NASAL SPRAY NASAL PRN (15:22)
[2023-04-30] MEDS: ACETAMINOPHEN 325 MG TABLET PO PRN (15:43)
[2023-04-30] MEDS: BENZOCAINE/MENTHOL LOZENGE PO PRN (15:43)
[2023-04-30] MEDS: QUEtiapine FUMARATE 300 MG TABLET PO SCH (20:31)
[2023-05-01] MEDS: QUEtiapine FUMARATE 100 MG TABLET PO SCH (08:59)
[2023-05-01] MEDS: DIVALPROEX SODIUM 500 MG DR TABLET PO SCH ×2 (08:59→21:06)
[2023-05-01] MEDS: BusPIRone HCL 10 MG TABLET PO SCH ×3 (08:59→21:06)
[2023-05-01] MEDS: DEXAMETHASONE 4 MG TABLET PO SCH (08:59)
[2023-05-01] MEDS: CITALOPRAM HYDROBROMIDE 10 MG TABLET PO SCH (08:59)
[2023-05-01 09:07] VITALS: BP 122/71; PULSE 95; RESP 16; TEMP 98.7; O2SAT 97
[2023-05-01 09:49] VITALS: BP 126/65; PULSE 88
[2023-05-01] MEDS: IBUPROFEN 400 MG TABLET PO PRN (09:49)
[2023-05-01 12:46] VITALS: TEMP 98
[2023-05-01 16:41] VITALS: TEMP 98.7
[2023-05-01 20:08] VITALS: BP 120/80; PULSE 67; RESP 18; TEMP 98; O2SAT 97
[2023-05-01] MEDS: QUEtiapine FUMARATE 300 MG TABLET PO SCH (21:06)
[2023-05-02] VITALS (7 sets, daily range): BP systolic 120–129; BP diastolic 61–73; PULSE 75–78; RESP 17–18; TEMP 97.5–98.1; O2SAT 98
[2023-05-02] MEDS: CITALOPRAM HYDROBROMIDE 10 MG TABLET PO SCH (08:43)
[2023-05-02] MEDS: BusPIRone HCL 10 MG TABLET PO SCH ×3 (08:43→20:20)
[2023-05-02] MEDS: DEXAMETHASONE 4 MG TABLET PO SCH (08:43)
[2023-05-02] MEDS: DIVALPROEX SODIUM 500 MG DR TABLET PO SCH ×2 (08:43→20:20)
[2023-05-02] MEDS: QUEtiapine FUMARATE 100 MG TABLET PO SCH (08:43)
[2023-05-02 11:53] LABS: COVID AG,FIA SOURCE NASAL SWAB
[2023-05-02 12:42] LABS: SARS-COV2 (COVID) ANTIGEN,FIA Positive (Negative)
[2023-05-02] MEDS: IBUPROFEN 400 MG TABLET PO PRN (17:21)
[2023-05-02] MEDS: QUEtiapine FUMARATE 300 MG TABLET PO SCH (20:20)
[2023-05-03 05:13] VITALS: RESP 18; TEMP 97.7
[2023-05-03] MEDS: BusPIRone HCL 10 MG TABLET PO SCH ×3 (08:31→20:48)
[2023-05-03] MEDS: CITALOPRAM HYDROBROMIDE 10 MG TABLET PO SCH (08:31)
[2023-05-03] MEDS: QUEtiapine FUMARATE 100 MG TABLET PO SCH (08:31)
[2023-05-03] MEDS: DIVALPROEX SODIUM 500 MG DR TABLET PO SCH ×2 (08:31→20:47)
[2023-05-03] MEDS: DEXAMETHASONE 4 MG TABLET PO SCH (08:31)
[2023-05-03 08:54] VITALS: BP 117/61; PULSE 70; RESP 18; TEMP 97.8; O2SAT 96
[2023-05-03 13:18] VITALS: RESP 18; TEMP 98
[2023-05-03 16:13] VITALS: RESP 18; TEMP 98.2
[2023-05-03 20:05] VITALS: BP 140/87; PULSE 90; RESP 19; TEMP 97.4; O2SAT 99
[2023-05-03] MEDS: QUEtiapine FUMARATE 300 MG TABLET PO SCH (20:47)
[2023-05-04] VITALS (7 sets, daily range): BP systolic 116–121; BP diastolic 67–71; PULSE 73–81; RESP 17–18; TEMP 97.8–98.2; O2SAT 96–98
[2023-05-04] MEDS: CITALOPRAM HYDROBROMIDE 10 MG TABLET PO SCH (08:25)
[2023-05-04] MEDS: BusPIRone HCL 10 MG TABLET PO SCH ×3 (08:25→20:34)
[2023-05-04] MEDS: DIVALPROEX SODIUM 500 MG DR TABLET PO SCH ×2 (08:25→20:34)
[2023-05-04] MEDS: QUEtiapine FUMARATE 100 MG TABLET PO SCH (08:25)
[2023-05-04] MEDS: IBUPROFEN 400 MG TABLET PO PRN (15:45)
[2023-05-04] MEDS: QUEtiapine FUMARATE 300 MG TABLET PO SCH (20:34)
[2023-05-05 00:47] VITALS: RESP 18; TEMP 97.8
[2023-05-05 05:21] VITALS: RESP 17; TEMP 97.9
[2023-05-05 08:00] VITALS: BP 120/70; PULSE 70; RESP 20; TEMP 98; O2SAT 96
[2023-05-05] MEDS: QUEtiapine FUMARATE 100 MG TABLET PO SCH (08:32)
[2023-05-05] MEDS: BusPIRone HCL 10 MG TABLET PO SCH ×3 (08:32→20:27)
[2023-05-05] MEDS: CITALOPRAM HYDROBROMIDE 10 MG TABLET PO SCH (08:32)
[2023-05-05] MEDS: DIVALPROEX SODIUM 500 MG DR TABLET PO SCH ×2 (08:32→20:26)
[2023-05-05 13:52] VITALS: TEMP 98
[2023-05-05 17:08] VITALS: TEMP 98.9
[2023-05-05 20:23] VITALS: BP 123/79; PULSE 87; RESP 18; TEMP 98.4
[2023-05-05] MEDS: QUEtiapine FUMARATE 300 MG TABLET PO SCH (20:27)
[2023-05-06] VITALS (7 sets, daily range): BP systolic 123–124; BP diastolic 68–77; PULSE 78–100; RESP 16–19; TEMP 97.9–99.2; O2SAT 97
[2023-05-06] MEDS: QUEtiapine FUMARATE 100 MG TABLET PO SCH (08:25)
[2023-05-06] MEDS: BusPIRone HCL 10 MG TABLET PO SCH ×3 (08:25→20:29)
[2023-05-06] MEDS: DIVALPROEX SODIUM 500 MG DR TABLET PO SCH ×2 (08:25→20:29)
[2023-05-06] MEDS: CITALOPRAM HYDROBROMIDE 10 MG TABLET PO SCH (08:26)
[2023-05-06] MEDS: ACETAMINOPHEN 325 MG TABLET PO PRN (13:41)
[2023-05-06] MEDS: QUEtiapine FUMARATE 300 MG TABLET PO SCH (20:29)
[2023-05-07 00:35] VITALS: RESP 16; TEMP 97.9
[2023-05-07 05:07] VITALS: RESP 18; TEMP 98.7
[2023-05-07] MEDS: CITALOPRAM HYDROBROMIDE 10 MG TABLET PO SCH (08:04)
[2023-05-07] MEDS: QUEtiapine FUMARATE 100 MG TABLET PO SCH (08:05)
[2023-05-07] MEDS: DIVALPROEX SODIUM 500 MG DR TABLET PO SCH ×2 (08:05→21:01)
[2023-05-07] MEDS: BusPIRone HCL 10 MG TABLET PO SCH ×3 (08:05→21:00)
[2023-05-07 08:13] VITALS: BP 130/69; PULSE 86; RESP 18; TEMP 97.7; O2SAT 96
[2023-05-07 12:14] VITALS: TEMP 98.2
[2023-05-07 16:26] VITALS: TEMP 97.7
[2023-05-07 18:48] LABS: COVID AG,FIA SOURCE NASAL SWAB
[2023-05-07 19:08] LABS: SARS-COV2 (COVID) ANTIGEN,FIA Negative (Negative)
[2023-05-07 20:03] VITALS: BP 128/82; PULSE 91; RESP 19; TEMP 97.2; O2SAT 98
[2023-05-07] MEDS: QUEtiapine FUMARATE 300 MG TABLET PO SCH (21:01)
[2023-05-08 05:39] VITALS: RESP 18; TEMP 97.8
[2023-05-08] MEDS: DIVALPROEX SODIUM 500 MG DR TABLET PO SCH ×2 (08:12→20:13)
[2023-05-08] MEDS: BusPIRone HCL 10 MG TABLET PO SCH ×3 (08:12→20:13)
[2023-05-08] MEDS: CITALOPRAM HYDROBROMIDE 10 MG TABLET PO SCH (08:12)
[2023-05-08] MEDS: QUEtiapine FUMARATE 100 MG TABLET PO SCH (08:13)
[2023-05-08 08:25] VITALS: BP 119/73; PULSE 101; RESP 18; TEMP 97.3; O2SAT 100
[2023-05-08 16:10] VITALS: RESP 18; TEMP 98.5; O2SAT 98
[2023-05-08] MEDS: QUEtiapine FUMARATE 300 MG TABLET PO SCH (20:13)
[2023-05-08 20:18] VITALS: BP 118/76; PULSE 89; RESP 18; TEMP 98.1
[2023-05-09] VITALS (8 sets, daily range): BP systolic 114–129; BP diastolic 62–81; PULSE 61–96; RESP 17–18; TEMP 97.6–98.1; O2SAT 96–98
[2023-05-09] MEDS: BusPIRone HCL 10 MG TABLET PO SCH ×3 (08:06→20:15)
[2023-05-09] MEDS: CITALOPRAM HYDROBROMIDE 10 MG TABLET PO SCH (08:06)
[2023-05-09] MEDS: QUEtiapine FUMARATE 100 MG TABLET PO SCH (08:06)
[2023-05-09] MEDS: DIVALPROEX SODIUM 500 MG DR TABLET PO SCH ×2 (08:06→20:15)
[2023-05-09] MEDS: ACETAMINOPHEN 325 MG TABLET PO PRN (15:41)
[2023-05-09] MEDS: QUEtiapine FUMARATE 300 MG TABLET PO SCH (20:15)
[2023-05-10] MEDS: DIVALPROEX SODIUM 500 MG DR TABLET PO SCH ×2 (08:15→21:02)
[2023-05-10] MEDS: BusPIRone HCL 10 MG TABLET PO SCH ×3 (08:15→21:02)
[2023-05-10] MEDS: CITALOPRAM HYDROBROMIDE 10 MG TABLET PO SCH (08:15)
[2023-05-10] MEDS: QUEtiapine FUMARATE 100 MG TABLET PO SCH (08:15)
[2023-05-10 09:07] VITALS: BP 116/69; PULSE 70; RESP 17; TEMP 98; O2SAT 98
[2023-05-10] MEDS: QUEtiapine FUMARATE 300 MG TABLET PO SCH (21:02)
[2023-05-10 21:21] VITALS: BP 120/72; PULSE 79; RESP 19; TEMP 97.9; O2SAT 99
[2023-05-11] MEDS: QUEtiapine FUMARATE 100 MG TABLET PO SCH (08:04)
[2023-05-11] MEDS: DIVALPROEX SODIUM 500 MG DR TABLET PO SCH ×2 (08:04→21:16)
[2023-05-11] MEDS: CITALOPRAM HYDROBROMIDE 10 MG TABLET PO SCH (08:04)
[2023-05-11] MEDS: BusPIRone HCL 10 MG TABLET PO SCH ×3 (08:04→21:16)
[2023-05-11 08:45] VITALS: BP 125/74; PULSE 109; RESP 18; TEMP 97.2; O2SAT 99
[2023-05-11] MEDS ORDERED: DIVA-112 PO ×2 (09:06→09:49)
[2023-05-11] MEDS ORDERED: CITA10TA99 PO ×2 (09:06→09:49)
[2023-05-11] MEDS ORDERED: QUET300T19 PO ×2 (09:06→09:49)
[2023-05-11] MEDS ORDERED: BUSP10TA23 PO ×2 (09:06→09:49)
[2023-05-11] MEDS ORDERED: QUET100T34 PO ×2 (09:06→09:49)
[2023-05-11 17:06] VITALS: BP 117/78; PULSE 76; RESP 18; TEMP 97.6
[2023-05-11] MEDS: ACETAMINOPHEN 325 MG TABLET PO PRN (17:11)
[2023-05-11 18:12] VITALS: RESP 16
[2023-05-11 20:37] VITALS: BP 149/86; PULSE 92; RESP 16; TEMP 97.2; O2SAT 98
[2023-05-11] MEDS: QUEtiapine FUMARATE 300 MG TABLET PO SCH (21:16)
[2023-05-12 09:16] VITALS: BP 126/90; PULSE 100; RESP 18; TEMP 97.5; O2SAT 95
[2023-05-12] MEDS: BusPIRone HCL 10 MG TABLET PO SCH (10:04)
[2023-05-12] MEDS: CITALOPRAM HYDROBROMIDE 10 MG TABLET PO SCH (10:04)
[2023-05-12] MEDS: DIVALPROEX SODIUM 500 MG DR TABLET PO SCH (10:05)
[2023-05-12] MEDS: QUEtiapine FUMARATE 100 MG TABLET PO SCH (10:05)
== END 2023-05-12 13:45 | disposition home or self-care (01) | DRG 750 ==
LOC: EMS 23:26 → 3EI 02-28 07:39 → 3EC 03-06 06:30
PROVIDERS: ADMIT Psychiatry & Neurology Psychiatry; ATTEND Psychiatry & Neurology Psychiatry
DX: F25.0 Schizoaffective disorder, bipolar type (principal); U07.1 COVID-19; F79 Unspecified intellectual disabilities; R45.851 Suicidal ideations; D64.9 Anemia, unspecified; F10.10 Alcohol abuse, uncomplicated; F41.9 Anxiety disorder, unspecified; Z79.899 Other long term (current) drug therapy; Z87.891 Personal history of nicotine dependence
CPT/HCPCS: 80053; 80061; 80164; 80307; 81003; 83036; 84443; 85025; 87081; 99285; G0480; J1200; J1630; J2060; J8540; Q0162; Q9967

== ENCOUNTER 2023-10-19 00:46 | Emergency (ER) | payer MEDICAID, OTHER ==
[~2023-10-19] VITALS: Ht 175.3 cm; Wt 90.0 kg
[~2023-10-19 00:46] MED LIST changes: +BUSP15 PO; +CIPR500T10 PO; -CITA10TA99 PO; +CITA20TA17 PO; +DOCU-385 PO; +MELA5TAB40 PO; +METR500 PO; +ONDA-104 PO; -QUET100T PO; +QUET100T34 PO; +QUET300T19 PO; -QUET300T2 PO
[2023-10-19 02:12] LABS: ANION GAP 11 mmol/L (8-16); CALCIUM, TOTAL 9.3 mg/dL (8.8-10.5); CARBON DIOXIDE 26 mmol/L (22-29); CHLORIDE 103 mmol/L (98-107); CREATININE 0.82 mg/dL (0.60-1.30); GLOMERULAR FILTR. RATE CALC > 60 mL/min (>60); GLUCOSE,RANDOM 99 mg/dL (70-110); POTASSIUM 3.7 mmol/L (3.5-5.1); SODIUM SERUM 140 mmol/L (136-145); UREA NITROGEN, BLOOD 20 mg/dL (7-18)
[2023-10-19 02:18] LABS: ALANINE AMINOTRANSFERASE 47 U/L (12-78); ALBUMIN 3.7 g/dL (3.4-5.0); ALKALINE PHOSPHATASE 72 U/L (46-116); ASPARTATE AMINOTRANSFERASE 16 U/L (15-37); BASOPHILS % (AUTO) 0.5 % (0.0-2.0); BILIRUBIN,TOTAL 0.6 mg/dL (0.1-1.0); EOSINOPHILS % (AUTO) 2.6 % (1.0-6.0); HEMATOCRIT 43.5 % (41-53); HEMOGLOBIN 15.4 g/dL (13.5-17.5); LYMPHOCYTES # (AUTO) 3.6 K/uL (1.0-4.8); LYMPHOCYTES % (AUTO) 36.7 % (22.0-44.0); MEAN CORPUSCULAR HEMOGLOBIN 31.3 pg (26.0-34.0); MEAN CORPUSCULAR HGB CONC 35.3 G/dL (31.0-37.0); MEAN CORPUSCULAR VOLUME 89 fL (80-100); MONOCYTES # (AUTO) 0.7 K/uL (0.1-1.0); NEUTROPHILS # (AUTO) 5.2 K/uL (1.8-7.7); NEUTROPHILS % (AUTO) 53.2 % (40.0-70.0); PLATELET COUNT (AUTO) 279 K/uL (150-450); RED CELL DISTRIBUTION WIDTH 13.6 % (11.5-14.5); TOTAL PROTEIN, SERUM 7.1 g/dL (6.4-8.2); WHITE BLOOD COUNT (AUTO) 9.8 K/uL (4.5-11.0)
[2023-10-19 03:54] VITALS: BP 116/76; PULSE 92; RESP 17; TEMP 98.3
[2023-10-19 04:27] LABS: APPEARANCE,URINE CLEAR (CLEAR); BILIRUBIN,URINE NEGATIVE (NEGATIVE); COLOR,URINE YELLOW (YELLOW); GLUCOSE, URINE (UA) NEGATIVE (NEGATIVE); KETONES,URINE NEGATIVE (NEGATIVE); LEUKOCYTE ESTERASE ,URINE NEGATIVE (NEGATIVE); NITRATE,URINE NEGATIVE (NEGATIVE); OCCULT BLOOD,URINE NEGATIVE (NEGATIVE); PH,URINE 6.5 (5.0-8.0); PROTEIN,URINE 30-70 mg/dL (NEGATIVE); UROBILINOGEN,URINE <=1.0 mg/dL (<=1.0)
[2023-10-22] MEDS ORDERED: DIVA-112 PO (11:27)
[2023-10-22] MEDS ORDERED: MELA5TAB40 PO (11:27)
[2023-10-22] MEDS ORDERED: BUSP10TA23 PO (11:27)
[2023-10-22] MEDS ORDERED: QUET100T34 PO (11:27)
[2023-10-22] MEDS ORDERED: QUET300T19 PO (11:27)
== END 2023-10-19 04:30 | disposition admitted as inpatient to this hospital (09) ==
LOC: EMS 00:47
DX: R10.9 Unspecified abdominal pain (principal); F79 Unspecified intellectual disabilities; F41.9 Anxiety disorder, unspecified; F32.A Depression, unspecified; F20.9 Schizophrenia, unspecified; Z87.891 Personal history of nicotine dependence; Z88.0 Allergy status to penicillin; Z91.013 Allergy to seafood
CPT/HCPCS: 80053; 81003; 85025; 99283

== ENCOUNTER 2023-10-21 09:52 | Emergency (ER) | payer OTHER ==
[~2023-10-21] VITALS: Ht 177.8 cm; Wt 95.5 kg
[2023-10-21 10:19] VITALS: BP 127/75; PULSE 108; RESP 18; TEMP 98.3
[2023-10-21] MEDS: ACETAMINOPHEN 500 MG TABLET PO ONE (10:25)
[2023-10-21] MEDS: FAMOTIDINE 20 MG TABLET PO ONE (10:25)
[2023-10-21] MEDS: MAG HYDROX/ALUMINUM HYD/SIMETH 30 ML SUSPENSION UDCUP PO ONE (10:25)
[2023-10-21 10:26] LABS: BASOPHILS % (AUTO) 0.3 % (0.0-2.0); EOSINOPHILS % (AUTO) 1.6 % (1.0-6.0); HEMATOCRIT 44.9 % (41-53); HEMOGLOBIN 15.8 g/dL (13.5-17.5); LYMPHOCYTES # (AUTO) 1.4 K/uL (1.0-4.8); LYMPHOCYTES % (AUTO) 12.8 % (22.0-44.0); MEAN CORPUSCULAR HEMOGLOBIN 31.1 pg (26.0-34.0); MEAN CORPUSCULAR HGB CONC 35.3 G/dL (31.0-37.0); MEAN CORPUSCULAR VOLUME 88 fL (80-100); NEUTROPHILS # (AUTO) 8.4 K/uL (1.8-7.7); NEUTROPHILS % (AUTO) 76.3 % (40.0-70.0); PLATELET COUNT (AUTO) 269 K/uL (150-450); RED BLOOD CELL COUNT(AUTO) 5.08 MIL/uL (4.50-5.90); RED CELL DISTRIBUTION WIDTH 14.3 % (11.5-14.5); WHITE BLOOD COUNT (AUTO) 10.9 K/uL (4.5-11.0)
[2023-10-21 10:33] LABS: ANION GAP 11 mmol/L (8-16); CALCIUM, TOTAL 9.2 mg/dL (8.8-10.5); CARBON DIOXIDE 25 mmol/L (22-29); CHLORIDE 104 mmol/L (98-107); CREATININE 0.86 mg/dL (0.60-1.30); GLOMERULAR FILTR. RATE CALC > 60 mL/min (>60); GLUCOSE,RANDOM 97 mg/dL (70-110); SODIUM SERUM 140 mmol/L (136-145); UREA NITROGEN, BLOOD 9 mg/dL (7-18)
[2023-10-21 10:39] LABS: ALANINE AMINOTRANSFERASE 54 U/L (12-78); ALBUMIN 3.9 g/dL (3.4-5.0); ALKALINE PHOSPHATASE 69 U/L (46-116); ASPARTATE AMINOTRANSFERASE 23 U/L (15-37); LIPASE 26 U/L (16-77); TOTAL PROTEIN, SERUM 7.7 g/dL (6.4-8.2)
[2023-10-21 10:42] LABS: TROPONIN I-HIGH SENSITIVITY 4 ng/L (<76)
[2023-10-22] MEDS ORDERED: DIVA-112 PO (11:27)
[2023-10-22] MEDS ORDERED: QUET300T19 PO (11:27)
[2023-10-22] MEDS ORDERED: MELA5TAB40 PO (11:27)
[2023-10-22] MEDS ORDERED: BUSP10TA23 PO (11:27)
[2023-10-22] MEDS ORDERED: QUET100T34 PO (11:27)
== END 2023-10-21 12:01 ==
LOC: EMS 10:07
DX: R07.89 Other chest pain (principal); F41.9 Anxiety disorder, unspecified; F32.A Depression, unspecified; F20.9 Schizophrenia, unspecified; Z90.49 Acquired absence of other specified parts of digestive tract; Z87.891 Personal history of nicotine dependence; Z88.0 Allergy status to penicillin; Z91.013 Allergy to seafood; Z04.6 Encounter for general psychiatric examination, requested by authority
CPT/HCPCS: 71045; 80053; 83690; 84484; 85025; 93005; 99285; 36415-L1; 36415-TC

== ENCOUNTER 2023-11-17 22:20 | Inpatient (IN) | payer MEDICAID ==
[~2023-11-17] VITALS: Ht 177.8 cm; Wt 102.5 kg
[~2023-11-17 22:20] MED LIST changes: +BUSP10TA23 PO; -BUSP15 PO; -CIPR500T10 PO; -DOCU-385 PO; -METR500 PO; -ONDA-104 PO
[2023-11-17] MEDS ORDERED: QUEtiapine FUMARATE 100 MG TABLET PO PRN (22:30)
[2023-11-17 23:11] LABS: GLUCOMETER DEV NAME(LOC) POC.BV; POC SARS-COV2 AG, FIA NEGATIVE (NEGATIVE)
[2023-11-18 00:26] VITALS: BP 136/81; PULSE 114; RESP 20; TEMP 97.5; O2SAT 97
[2023-11-18] MEDS: LORazepam 2 MG TABLET PO PRN (00:35)
[2023-11-18] MEDS ORDERED: MAGNESIUM HYDROXIDE SUSPENSION 30 ML UDCUP PO PRN (07:00)
[2023-11-18] MEDS ORDERED: ONDANSETRON HCL 4 MG TABLET PO PRN (07:00)
[2023-11-18] MEDS ORDERED: GuaiFENesin/D-METHORPHAN [SUGAR-FREE] 200-20MG/10 ML SYRUP UDCUP PO PRN (07:00)
[2023-11-18] MEDS ORDERED: DOCUSATE SODIUM 100 MG CAPSULE PO PRN (07:00)
[2023-11-18] MEDS ORDERED: IBUPROFEN 400 MG TABLET PO PRN (07:00)
[2023-11-18] MEDS ORDERED: PETROLATUM,WHITE 28 GM JELLY TP PRN (07:00)
[2023-11-18] MEDS ORDERED: CloNIDine HCL 0.1 MG TABLET PO PRN (07:00)
[2023-11-18] MEDS ORDERED: LOPERAMIDE HCL 2 MG CAPSULE PO PRN (07:00)
[2023-11-18] MEDS ORDERED: NICOTINE 14 MG/24 HOUR PATCH TD PRN (07:00)
[2023-11-18] MEDS ORDERED: ALBUTEROL SULFATE HFA 90 MCG/PUFF 8 GM INHALER IH PRN (07:00)
[2023-11-18] MEDS ORDERED: MELATONIN 5 MG TABLET PO PRN (07:00)
[2023-11-18 08:25] VITALS: BP 143/79; PULSE 105; RESP 18; TEMP 98; O2SAT 95
[2023-11-18] MEDS: NICOTINE POLACRILEX 2 MG LOZENGE PO PRN (12:25)
[2023-11-18] MEDS: DIVALPROEX SODIUM 500 MG DR TABLET PO SCH (21:38)
[2023-11-18] MEDS: QUEtiapine FUMARATE 300 MG TABLET PO SCH (21:39)
[2023-11-19 04:00] VITALS: BP 101/77; PULSE 88; RESP 18; TEMP 98; O2SAT 96
[2023-11-19 08:28] LABS: BASOPHILS % (AUTO) 0.5 % (0.0-2.0); EOSINOPHILS % (AUTO) 3.6 % (1.0-6.0); HEMATOCRIT 47.9 % (41-53); HEMOGLOBIN 16.5 g/dL (13.5-17.5); LYMPHOCYTES # (AUTO) 2.8 K/uL (1.0-4.8); LYMPHOCYTES % (AUTO) 39.3 % (22.0-44.0); MEAN CORPUSCULAR HEMOGLOBIN 30.9 pg (26.0-34.0); MEAN CORPUSCULAR HGB CONC 34.5 G/dL (31.0-37.0); MEAN CORPUSCULAR VOLUME 90 fL (80-100); MONOCYTES # (AUTO) 0.6 K/uL (0.1-1.0); MONOCYTES % (AUTO) 8.9 % (2.0-9.0); NEUTROPHILS # (AUTO) 3.4 K/uL (1.8-7.7); NEUTROPHILS % (AUTO) 47.7 % (40.0-70.0); PLATELET COUNT (AUTO) 313 K/uL (150-450); RED BLOOD CELL COUNT(AUTO) 5.34 MIL/uL (4.50-5.90); WHITE BLOOD COUNT (AUTO) 7.2 K/uL (4.5-11.0)
[2023-11-19 08:37] LABS: HEMOGLOBIN A1C 5.3 % (3.8-5.6)
[2023-11-19 08:56] LABS: CARBON DIOXIDE 27 mmol/L (22-29); CHLORIDE 103 mmol/L (98-107); POTASSIUM 4.4 mmol/L (3.5-5.1); SODIUM SERUM 140 mmol/L (136-145)
[2023-11-19 08:57] LABS: ALANINE AMINOTRANSFERASE 36 U/L (12-78); ALBUMIN 3.5 g/dL (3.4-5.0); ALKALINE PHOSPHATASE 69 U/L (46-116); ANION GAP 10 mmol/L (8-16); ASPARTATE AMINOTRANSFERASE 27 U/L (15-37); BILIRUBIN,TOTAL 0.6 mg/dL (0.1-1.0); CALCIUM, TOTAL 9.2 mg/dL (8.8-10.5); CHOL/HDL RATIO 4.5 (4.2-7.3); CHOLESTEROL 183 mg/dL (131-200); CREATININE 0.73 mg/dL (0.60-1.30); GLOMERULAR FILTR. RATE CALC > 60 mL/min (>60); GLUCOSE,RANDOM 87 mg/dL (70-110); HDL CHOLESTEROL 41 mg/dL (40-60); LDL CHOL (CALC.) 99 mg/dL (0-130); THYROID STIMULATING HORMONE 2.08 uIU/mL (0.36-3.74); TOTAL PROTEIN, SERUM 7.7 g/dL (6.4-8.2); TRIGLYCERIDES 217 mg/dL (15-150); UREA NITROGEN, BLOOD 14 mg/dL (7-18); VALPROIC ACID 61 mcg/mL (50-100)
[2023-11-19 09:20] VITALS: BP 122/70; PULSE 100; RESP 17; TEMP 98; O2SAT 98
[2023-11-19] MEDS: QUEtiapine FUMARATE 100 MG TABLET PO SCH (09:29)
[2023-11-19] MEDS: CITALOPRAM HYDROBROMIDE 20 MG TABLET PO SCH (09:29)
[2023-11-19 20:13] VITALS: BP 135/75; PULSE 109; RESP 18; TEMP 97.6; O2SAT 98
[2023-11-20 08:28] VITALS: BP 120/60; PULSE 80; RESP 18; TEMP 97.9; O2SAT 100
[2023-11-20] MEDS: ACETAMINOPHEN 325 MG TABLET PO PRN (16:26)
[2023-11-20] MEDS: MAG HYDROX/ALUMINUM HYD/SIMETH ES 30 ML SUSPENSION UDCUP PO PRN (21:19)
[2023-11-20 21:51] VITALS: BP 120/86; PULSE 97; RESP 19; TEMP 98.2; O2SAT 96
[2023-11-21 08:46] LABS: APPEARANCE,URINE CLEAR (CLEAR); BILIRUBIN,URINE NEGATIVE (NEGATIVE); COLOR,URINE LIGHT YELLOW (YELLOW); GLUCOSE, URINE (UA) NEGATIVE (NEGATIVE); KETONES,URINE NEGATIVE (NEGATIVE); LEUKOCYTE ESTERASE ,URINE NEGATIVE (NEGATIVE); NITRATE,URINE NEGATIVE (NEGATIVE); OCCULT BLOOD,URINE NEGATIVE (NEGATIVE); PH,URINE 6.5 (5.0-8.0); PH,URINE DRUG SCREEN 6.5 (5.0-8.0); PROTEIN,URINE NEGATIVE (NEGATIVE); UROBILINOGEN,URINE <=1.0 mg/dL (<=1.0)
[2023-11-21 08:47] VITALS: BP 126/65; PULSE 89; RESP 18; TEMP 97.7; O2SAT 99
[2023-11-21 08:53] LABS: ALCOHOL, URINE DRUG SCREEN NEGATIVE (NEGATIVE); AMPHET/METH SCREEN,URINE NEGATIVE (NEGATIVE); BARBITURATE SCREEN, URINE NEGATIVE (NEGATIVE); BENZODIAZEPINES SCREEN,URINE NEGATIVE (NEGATIVE); CANNABINOID SCREEN,URINE NEGATIVE (NEGATIVE); COCAINE SCREEN,URINE NEGATIVE (NEGATIVE); METHADONE SCREEN, URINE NEGATIVE (NEGATIVE); OPIATE SCREEN,URINE NEGATIVE (NEGATIVE); PHENCYCLIDINE SCREEN,URINE NEGATIVE (NEGATIVE)
[2023-11-21 21:29] VITALS: BP 135/77; PULSE 71; RESP 15; TEMP 97.7; O2SAT 96
[2023-11-22 08:36] VITALS: RESP 17
[2023-11-22] MEDS: ACETAMINOPHEN 325 MG TABLET PO PRN (20:39)
[2023-11-22 21:53] VITALS: BP 134/70; PULSE 86; RESP 16; TEMP 97.5; O2SAT 96
[2023-11-23] MEDS: ZOLPIDEM TARTRATE 10 MG TABLET PO PRN (02:33)
[2023-11-23 04:39] VITALS: RESP 16
[2023-11-23 09:39] VITALS: BP 124/76; PULSE 82; RESP 18; TEMP 97.2; O2SAT 98
[2023-11-23] MEDS ORDERED: QUET100T PO (09:55)
[2023-11-23] MEDS ORDERED: CITA-144 PO (09:55)
[2023-11-23] MEDS ORDERED: DIVA-112 PO (09:56)
[2023-11-23] MEDS ORDERED: QUET300T2 PO (09:56)
[2023-11-23] MEDS ORDERED: HYDROmorphone HCL 2 MG/ML SYRINGE ONE (13:36)
== END 2023-11-23 15:26 | disposition home or self-care (01) | DRG 750 ==
LOC: B3A 22:28
PROVIDERS: ADMIT Psychiatry & Neurology Psychiatry; ATTEND Psychiatry & Neurology Psychiatry
PROC: GZHZZZZ Group Psychotherapy (ICD-10-PCS; principal; 2023-11-21)
DX: F25.0 Schizoaffective disorder, bipolar type (principal); F79 Unspecified intellectual disabilities; E66.9 Obesity, unspecified; G47.00 Insomnia, unspecified; Z20.822 Contact with and (suspected) exposure to COVID-19; F41.9 Anxiety disorder, unspecified; Z91.199 Patient's noncompliance with other medical treatment and regimen due to unspecified reason; Z88.0 Allergy status to penicillin; Z91.013 Allergy to seafood; Z68.32 Body mass index [BMI] 32.0-32.9, adult; Z79.899 Other long term (current) drug therapy; Z59.00 Homelessness unspecified
CPT/HCPCS: 80053; 80061; 80164; 80307; 81003; 83036; 84443; 85025; 87081; J1170; Q9967

== ENCOUNTER 2023-12-12 21:17 | Inpatient (IN) | payer MEDICAID, OTHER ==
[~2023-12-12] VITALS: Ht 175.3 cm; Wt 96.2 kg
[~2023-12-12 21:17] MED LIST changes: -BUSP10TA23 PO; +CITA-144 PO; -CITA20TA17 PO; -MELA5TAB40 PO
[2023-12-12] MEDS: ZOLPIDEM TARTRATE 10 MG TABLET PO PRN (22:57)
[2023-12-12] MEDS: HALOPERIDOL 5 MG TABLET PO PRN (22:57)
[2023-12-12] MEDS: LORazepam 2 MG TABLET PO PRN (22:57)
[2023-12-12 22:58] LABS: APPEARANCE,URINE CLEAR (CLEAR); BILIRUBIN,URINE NEGATIVE (NEGATIVE); COLOR,URINE LIGHT YELLOW (YELLOW); GLUCOSE, URINE (UA) NEGATIVE (NEGATIVE); KETONES,URINE NEGATIVE (NEGATIVE); LEUKOCYTE ESTERASE ,URINE NEGATIVE (NEGATIVE); NITRATE,URINE NEGATIVE (NEGATIVE); OCCULT BLOOD,URINE NEGATIVE (NEGATIVE); PH,URINE 6.5 (5.0-8.0); PROTEIN,URINE NEGATIVE (NEGATIVE); SPECIFIC GRAVITIY, URINE 1.014 (1.003-1.030); UROBILINOGEN,URINE <=1.0 mg/dL (<=1.0)
[2023-12-12 22:59] LABS: PH,URINE DRUG SCREEN 6.5 (5.0-8.0)
[2023-12-12 23:04] LABS: ALCOHOL, URINE DRUG SCREEN NEGATIVE (NEGATIVE); AMPHET/METH SCREEN,URINE NEGATIVE (NEGATIVE); BARBITURATE SCREEN, URINE NEGATIVE (NEGATIVE); BENZODIAZEPINES SCREEN,URINE NEGATIVE (NEGATIVE); CANNABINOID SCREEN,URINE NEGATIVE (NEGATIVE); COCAINE SCREEN,URINE NEGATIVE (NEGATIVE); METHADONE SCREEN, URINE NEGATIVE (NEGATIVE); OPIATE SCREEN,URINE NEGATIVE (NEGATIVE); PHENCYCLIDINE SCREEN,URINE NEGATIVE (NEGATIVE)
[2023-12-12 23:06] LABS: BASOPHILS % (AUTO) 0.6 % (0.0-2.0); EOSINOPHILS % (AUTO) 2.6 % (1.0-6.0); HEMATOCRIT 43.9 % (41-53); HEMOGLOBIN 15.2 g/dL (13.5-17.5); LYMPHOCYTES # (AUTO) 2.9 K/uL (1.0-4.8); LYMPHOCYTES % (AUTO) 34.8 % (22.0-44.0); MEAN CORPUSCULAR HEMOGLOBIN 30.6 pg (26.0-34.0); MEAN CORPUSCULAR HGB CONC 34.7 G/dL (31.0-37.0); MEAN CORPUSCULAR VOLUME 88 fL (80-100); MONOCYTES # (AUTO) 0.9 K/uL (0.1-1.0); MONOCYTES % (AUTO) 10.5 % (2.0-9.0); NEUTROPHILS # (AUTO) 4.2 K/uL (1.8-7.7); NEUTROPHILS % (AUTO) 51.5 % (40.0-70.0); PLATELET COUNT (AUTO) 292 K/uL (150-450); RED BLOOD CELL COUNT(AUTO) 4.97 MIL/uL (4.50-5.90); RED CELL DISTRIBUTION WIDTH 13.7 % (11.5-14.5); WHITE BLOOD COUNT (AUTO) 8.2 K/uL (4.5-11.0)
[2023-12-12 23:17] LABS: ANION GAP 10 mmol/L (8-16); CALCIUM, TOTAL 9.1 mg/dL (8.8-10.5); CARBON DIOXIDE 25 mmol/L (22-29); CHLORIDE 103 mmol/L (98-107); GLOMERULAR FILTR. RATE CALC > 60 mL/min (>60); GLUCOSE,RANDOM 103 mg/dL (70-110); POTASSIUM 3.6 mmol/L (3.5-5.1); SODIUM SERUM 138 mmol/L (136-145); UREA NITROGEN, BLOOD 8 mg/dL (7-18)
[2023-12-12 23:23] LABS: ALANINE AMINOTRANSFERASE 38 U/L (12-78); ALBUMIN 3.8 g/dL (3.4-5.0); ALKALINE PHOSPHATASE 78 U/L (46-116); ASPARTATE AMINOTRANSFERASE 24 U/L (15-37); BILIRUBIN,TOTAL 0.7 mg/dL (0.1-1.0); TOTAL PROTEIN, SERUM 7.9 g/dL (6.4-8.2)
[2023-12-12 23:26] LABS: ALCOHOL, BLOOD (SERUM) < 3 mg/dL (0-10)
[2023-12-13 00:44] LABS: COVID AG,FIA SOURCE NASAL SWAB
[2023-12-13 01:05] LABS: SARS-COV2 (COVID) ANTIGEN,FIA Negative (Negative)
[2023-12-13 12:14] VITALS: BP 121/78; PULSE 78; RESP 17; TEMP 97
[2023-12-13] MEDS: AZITHROMYCIN 500 MG TABLET PO SCH (15:44)
[2023-12-13] MEDS: GuaiFENesin/D-METHORPHAN/PHENYLEPH 5 ML LIQUID ORAL.SYG PO PRN (19:49)
[2023-12-13] MEDS: ONDANSETRON HCL 4 MG/2 ML VIAL IM PRN (20:51)
[2023-12-14 08:23] LABS: ALANINE AMINOTRANSFERASE 39 U/L (12-78); ALBUMIN 3.8 g/dL (3.4-5.0); ALKALINE PHOSPHATASE 79 U/L (46-116); ANION GAP 11 mmol/L (8-16); ASPARTATE AMINOTRANSFERASE 21 U/L (15-37); BASOPHILS % (AUTO) 0.3 % (0.0-2.0); CALCIUM, TOTAL 9.4 mg/dL (8.8-10.5); CARBON DIOXIDE 26 mmol/L (22-29); CHLORIDE 103 mmol/L (98-107); CREATININE 0.92 mg/dL (0.60-1.30); EOSINOPHILS % (AUTO) 2.1 % (1.0-6.0); GLOMERULAR FILTR. RATE CALC > 60 mL/min (>60); GLUCOSE,RANDOM 90 mg/dL (70-110); HEMATOCRIT 45.1 % (41-53); HEMOGLOBIN 15.9 g/dL (13.5-17.5); LIPASE 24 U/L (16-77); LYMPHOCYTES # (AUTO) 2.2 K/uL (1.0-4.8); LYMPHOCYTES % (AUTO) 24.2 % (22.0-44.0); MEAN CORPUSCULAR HEMOGLOBIN 31.1 pg (26.0-34.0); MEAN CORPUSCULAR HGB CONC 35.2 G/dL (31.0-37.0); MEAN CORPUSCULAR VOLUME 88 fL (80-100); MONOCYTES % (AUTO) 10.8 % (2.0-9.0); NEUTROPHILS # (AUTO) 5.8 K/uL (1.8-7.7); NEUTROPHILS % (AUTO) 62.6 % (40.0-70.0); PLATELET COUNT (AUTO) 306 K/uL (150-450); POTASSIUM 3.6 mmol/L (3.5-5.1); RED BLOOD CELL COUNT(AUTO) 5.11 MIL/uL (4.50-5.90); RED CELL DISTRIBUTION WIDTH 13.7 % (11.5-14.5); SODIUM SERUM 140 mmol/L (136-145); TOTAL PROTEIN, SERUM 7.8 g/dL (6.4-8.2); UREA NITROGEN, BLOOD 15 mg/dL (7-18); WHITE BLOOD COUNT (AUTO) 9.3 K/uL (4.5-11.0)
[2023-12-14 08:30] VITALS: BP 120/65; PULSE 85; RESP 17; TEMP 98; O2SAT 94
[2023-12-14] MEDS: AZITHROMYCIN 250 MG TABLET PO SCH (10:02)
[2023-12-14] MEDS ORDERED: LORazepam 2 MG/ML VIAL ONE (10:59)
[2023-12-14] MEDS: DiphenhydrAMINE HCL 50 MG/ML VIAL IM ONE (11:29)
[2023-12-14] MEDS: LORazepam 2 MG/ML VIAL IM ONE (11:29)
[2023-12-14] MEDS: HALOPERIDOL LACTATE 5 MG/ML VIAL IM ONE (11:29)
[2023-12-14] MEDS ORDERED: MAGNESIUM HYDROXIDE SUSPENSION 30 ML UDCUP PO PRN (16:00)
[2023-12-14] MEDS ORDERED: ONDANSETRON HCL 4 MG TABLET PO PRN (16:00)
[2023-12-14] MEDS ORDERED: CloNIDine HCL 0.1 MG TABLET PO PRN (16:00)
[2023-12-14] MEDS ORDERED: LOPERAMIDE HCL 2 MG CAPSULE PO PRN (16:00)
[2023-12-14] MEDS ORDERED: DOCUSATE SODIUM 100 MG CAPSULE PO PRN (16:00)
[2023-12-14] MEDS ORDERED: PETROLATUM,WHITE 28 GM JELLY TP PRN (16:00)
[2023-12-14] MEDS ORDERED: ALBUTEROL SULFATE HFA 90 MCG/PUFF 8 GM INHALER IH PRN (16:00)
[2023-12-14] MEDS: DIVALPROEX SODIUM 500 MG DR TABLET PO SCH (20:16)
[2023-12-14] MEDS: QUEtiapine FUMARATE 300 MG TABLET PO SCH (20:17)
[2023-12-14 20:19] VITALS: BP 123/68; PULSE 80; TEMP 98.9; O2SAT 94
[2023-12-15 08:24] VITALS: RESP 16
[2023-12-15 08:46] LABS: HEMOGLOBIN A1C 5.2 % (3.8-5.6)
[2023-12-15 09:01] LABS: THYROID STIMULATING HORMONE 1.45 uIU/mL (0.36-3.74)
[2023-12-15] MEDS: QUEtiapine FUMARATE 100 MG TABLET PO SCH (09:49)
[2023-12-15] MEDS: CITALOPRAM HYDROBROMIDE 20 MG TABLET PO SCH (09:49)
[2023-12-15 10:22] VITALS: BP 139/71; PULSE 104; RESP 16; TEMP 97.8; O2SAT 98
[2023-12-15] MEDS: NICOTINE 14 MG/24 HOUR PATCH TD PRN (18:49)
[2023-12-15 19:11] VITALS: RESP 18
[2023-12-15] MEDS: ACETAMINOPHEN 325 MG TABLET PO PRN (19:11)
[2023-12-15 20:00] VITALS: RESP 16
[2023-12-15 20:57] VITALS: BP 122/77; PULSE 97; TEMP 97.6; O2SAT 98
[2023-12-16 04:12] VITALS: BP 123/78; PULSE 96; RESP 20; TEMP 98; O2SAT 98
[2023-12-16 08:51] VITALS: BP 119/74; PULSE 99; RESP 17; TEMP 97.9; O2SAT 99
[2023-12-16] MEDS: GuaiFENesin/D-METHORPHAN [SUGAR-FREE] 200-20MG/10 ML SYRUP UDCUP PO PRN (10:42)
[2023-12-16] MEDS: MAG HYDROX/ALUMINUM HYD/SIMETH ES 30 ML SUSPENSION UDCUP PO PRN (14:53)
[2023-12-17] MEDS: BENZOCAINE/MENTHOL LOZENGE PO PRN (04:29)
[2023-12-17 07:18] VITALS: BP 116/65; PULSE 89; RESP 18; TEMP 98.1; O2SAT 98
[2023-12-17 10:55] VITALS: BP 139/79; PULSE 89; RESP 19; TEMP 97.7; O2SAT 97
[2023-12-17 21:00] VITALS: BP 111/71; PULSE 100; RESP 18; TEMP 97.6; O2SAT 98
[2023-12-17 22:27] VITALS: BP 117/71; PULSE 100; RESP 17; TEMP 97.6; O2SAT 98
[2023-12-18 10:41] VITALS: BP 127/75; PULSE 108; RESP 20; TEMP 97.9; O2SAT 96
[2023-12-18 20:11] VITALS: BP 120/72; PULSE 109; TEMP 98.4; O2SAT 98
[2023-12-19] MEDS ORDERED: DIVA-112 PO (08:46)
[2023-12-19] MEDS ORDERED: CITA-144 PO (08:46)
[2023-12-19] MEDS ORDERED: QUET300T19 PO (08:46)
[2023-12-19] MEDS ORDERED: QUET100T34 PO (08:46)
[2023-12-19 09:03] VITALS: BP 115/71; PULSE 107; RESP 16; TEMP 98.4; O2SAT 96
[2023-12-19] MEDS: IBUPROFEN 400 MG TABLET PO PRN (10:53)
== END 2023-12-19 19:02 | disposition home or self-care (01) | DRG 750 ==
LOC: EMS 21:18 → B2S 12-13 08:35 → B3A 12-14 11:10
PROVIDERS: ADMIT Psychiatry & Neurology Psychiatry; ATTEND Psychiatry & Neurology Psychiatry
PROC: GZHZZZZ Group Psychotherapy (ICD-10-PCS; principal; 2023-12-14)
DX: F25.0 Schizoaffective disorder, bipolar type (principal); F79 Unspecified intellectual disabilities; Z20.822 Contact with and (suspected) exposure to COVID-19; R45.851 Suicidal ideations; F41.9 Anxiety disorder, unspecified; E66.9 Obesity, unspecified; G47.00 Insomnia, unspecified; Z79.899 Other long term (current) drug therapy; Z88.0 Allergy status to penicillin; Z91.013 Allergy to seafood; Z90.49 Acquired absence of other specified parts of digestive tract; Z87.891 Personal history of nicotine dependence; Z68.31 Body mass index [BMI] 31.0-31.9, adult
CPT/HCPCS: 71047; 80053; 80061; 80307; 81003; 83036; 83690; 84443; 85025; 99285; G0480; J1200; J1630; J2060; J2405; Q9967; 36415-L1; 36415-TC

== ENCOUNTER 2024-02-27 02:40 | Inpatient (IN) | payer MEDICAID, OTHER ==
[~2024-02-27] VITALS: Ht 177.8 cm; Wt 98.9 kg
[2024-02-27 03:37] LABS: BASOPHILS % (AUTO) 0.6 % (0.0-2.0); EOSINOPHILS % (AUTO) 1.2 % (1.0-6.0); HEMATOCRIT 47.9 % (41-53); HEMOGLOBIN 16.3 g/dL (13.5-17.5); LYMPHOCYTES # (AUTO) 2.5 K/uL (1.0-4.8); LYMPHOCYTES % (AUTO) 20.4 % (22.0-44.0); MEAN CORPUSCULAR HEMOGLOBIN 30.8 pg (26.0-34.0); MEAN CORPUSCULAR HGB CONC 34.1 G/dL (31.0-37.0); MEAN CORPUSCULAR VOLUME 91 fL (80-100); MONOCYTES % (AUTO) 8.1 % (2.0-9.0); NEUTROPHILS # (AUTO) 8.7 K/uL (1.8-7.7); NEUTROPHILS % (AUTO) 69.7 % (40.0-70.0); PLATELET COUNT (AUTO) 328 K/uL (150-450); RED BLOOD CELL COUNT(AUTO) 5.29 MIL/uL (4.50-5.90); RED CELL DISTRIBUTION WIDTH 13.7 % (11.5-14.5); WHITE BLOOD COUNT (AUTO) 12.4 K/uL (4.5-11.0)
[2024-02-27 03:38] LABS: ANION GAP 7 mmol/L (8-16); CALCIUM, TOTAL 9.8 mg/dL (8.8-10.5); CARBON DIOXIDE 33 mmol/L (22-29); CHLORIDE 102 mmol/L (98-107); GLOMERULAR FILTR. RATE CALC > 60 mL/min (>60); GLUCOSE,RANDOM 81 mg/dL (70-110); POTASSIUM 4.4 mmol/L (3.5-5.1); SODIUM SERUM 142 mmol/L (136-145); UREA NITROGEN, BLOOD 16 mg/dL (7-18)
[2024-02-27 06:45] LABS: COVID AG,FIA SOURCE NASAL SWAB
[2024-02-27] MEDS ORDERED: QUEtiapine FUMARATE 100 MG TABLET PO ONE (07:00)
[2024-02-27 07:34] LABS: SARS-COV2 (COVID) ANTIGEN,FIA Negative (Negative)
[2024-02-27] MEDS: QUEtiapine FUMARATE 100 MG TABLET PO SCH (09:00)
[2024-02-27] MEDS ORDERED: LOPERAMIDE HCL 2 MG CAPSULE PO PRN (09:00)
[2024-02-27] MEDS ORDERED: TUBERCULIN, PURIFIED PROTEIN DERIVATIVE 5 TU/0.1 ML SYRINGE ID ONE (09:00)
[2024-02-27] MEDS ORDERED: MAGNESIUM HYDROXIDE SUSPENSION 30 ML UDCUP PO PRN (09:00)
[2024-02-27] MEDS ORDERED: PROMETHAZINE HCL 25 MG TABLET PO PRN (09:00)
[2024-02-27] MEDS ORDERED: GuaiFENesin/D-METHORPHAN [SUGAR-FREE] 200-20MG/10 ML SYRUP UDCUP PO PRN (09:00)
[2024-02-27] MEDS: MULTIVITAMINS WITH MINERALS, THERAPEUTIC TABLET PO SCH (10:13)
[2024-02-27] MEDS: QUEtiapine FUMARATE 100 MG TABLET PO ONE (10:14)
[2024-02-27] MEDS: DIVALPROEX SODIUM 500 MG ER TABLET PO ONE (10:15)
[2024-02-27] MEDS: FOLIC ACID 1 MG TABLET PO SCH (10:15)
[2024-02-27] MEDS: THIAMINE 100 MG TABLET PO SCH (10:15)
[2024-02-27] MEDS: CITALOPRAM HYDROBROMIDE 20 MG TABLET PO SCH (20:35)
[2024-02-27] MEDS: DIVALPROEX SODIUM 500 MG ER TABLET PO SCH (20:35)
[2024-02-27] MEDS: NICOTINE 21 MG/24 HOUR PATCH TD SCH (20:36)
[2024-02-27] MEDS: QUEtiapine FUMARATE 300 MG TABLET PO SCH (20:36)
[2024-02-27] MEDS: ZOLPIDEM TARTRATE 10 MG TABLET PO PRN (20:36)
[2024-02-27] MEDS: MELATONIN 5 MG TABLET PO SCH (20:36)
[2024-02-27 20:40] VITALS: RESP 18
[2024-02-28 08:43] VITALS: RESP 16
[2024-02-28] MEDS: QUEtiapine FUMARATE 100 MG TABLET PO PRN (16:52)
[2024-02-28] MEDS: LORazepam 1 MG TABLET PO PRN (16:53)
[2024-02-28] MEDS: HydrOXYzine PAMOATE 50 MG CAPSULE PO PRN (16:53)
[2024-02-28] MEDS: QUEtiapine FUMARATE 200 MG TABLET PO SCH (20:58)
[2024-02-28 22:25] VITALS: BP 106/73; PULSE 101; RESP 18; TEMP 97.3; O2SAT 96
[2024-02-29 08:11] LABS: BASOPHILS % (AUTO) 0.4 % (0.0-2.0); EOSINOPHILS % (AUTO) 2.7 % (1.0-6.0); HEMATOCRIT 45.3 % (41-53); HEMOGLOBIN 15.4 g/dL (13.5-17.5); LYMPHOCYTES # (AUTO) 2.9 K/uL (1.0-4.8); LYMPHOCYTES % (AUTO) 43.2 % (22.0-44.0); MEAN CORPUSCULAR HEMOGLOBIN 30.7 pg (26.0-34.0); MEAN CORPUSCULAR VOLUME 90 fL (80-100); MONOCYTES # (AUTO) 0.4 K/uL (0.1-1.0); MONOCYTES % (AUTO) 6.6 % (2.0-9.0); NEUTROPHILS # (AUTO) 3.2 K/uL (1.8-7.7); NEUTROPHILS % (AUTO) 47.1 % (40.0-70.0); PLATELET COUNT (AUTO) 280 K/uL (150-450); RED BLOOD CELL COUNT(AUTO) 5.01 MIL/uL (4.50-5.90); RED CELL DISTRIBUTION WIDTH 13.8 % (11.5-14.5); WHITE BLOOD COUNT (AUTO) 6.8 K/uL (4.5-11.0)
[2024-02-29 08:27] LABS: HEMOGLOBIN A1C 5.2 % (3.8-5.6)
[2024-02-29 08:35] LABS: CHOL/HDL RATIO 3.4 (4.2-7.3); FREE T4 (FREE THYROXINE) 1.05 ng/dL (0.76-1.46); THYROID STIMULATING HORMONE 0.76 uIU/mL (0.36-3.74)
[2024-02-29 08:45] VITALS: BP 140/80; PULSE 92; RESP 18; TEMP 97.3; O2SAT 98
[2024-02-29 20:03] VITALS: BP 135/67; PULSE 94; RESP 19; TEMP 97.3; O2SAT 98
[2024-03-01] MEDS: ACETAMINOPHEN 325 MG TABLET PO PRN (04:03)
[2024-03-01 04:04] VITALS: BP 128/64; PULSE 95; RESP 18; TEMP 98.3; O2SAT 97
[2024-03-01 08:34] VITALS: BP 129/77; PULSE 100; RESP 16; TEMP 97.7; O2SAT 96
[2024-03-01] MEDS: MAG HYDROX/ALUMINUM HYD/SIMETH ES 30 ML SUSPENSION UDCUP PO PRN (10:01)
[2024-03-01 20:43] VITALS: BP 127/75; PULSE 86; RESP 17; TEMP 96.9; O2SAT 97
[2024-03-02 08:20] VITALS: BP 145/63; PULSE 82; RESP 18; TEMP 97.3; O2SAT 99
[2024-03-02 20:20] VITALS: BP 139/70; PULSE 94; RESP 18; TEMP 97.7; O2SAT 97
[2024-03-03 08:59] VITALS: RESP 18
[2024-03-03 20:14] VITALS: BP 144/78; PULSE 99; RESP 20; TEMP 97.5; O2SAT 96
[2024-03-04 08:02] VITALS: BP 119/77; PULSE 116; RESP 17; TEMP 97.8; O2SAT 99
[2024-03-04 10:08] VITALS: BP 121/72; PULSE 87; RESP 17; TEMP 98; O2SAT 96
[2024-03-04] MEDS ORDERED: HALOPERIDOL LACTATE 5 MG/ML VIAL IM PRN (12:00)
[2024-03-04 20:08] VITALS: BP 108/64; PULSE 100; RESP 18; TEMP 98; O2SAT 100
[2024-03-05 08:27] VITALS: BP 108/60; PULSE 81; RESP 17; TEMP 97.7; O2SAT 100
[2024-03-05] MEDS: IBUPROFEN 600 MG TABLET PO PRN (16:15)
[2024-03-05 20:26] VITALS: BP 127/78; PULSE 98; RESP 16; TEMP 97.7; O2SAT 97
[2024-03-06 08:07] VITALS: BP 110/61; PULSE 88; RESP 20; TEMP 97.7; O2SAT 95
[2024-03-06] MEDS: QUEtiapine FUMARATE 200 MG TABLET PO SCH (20:21)
[2024-03-06 21:34] VITALS: BP 115/74; PULSE 89; RESP 18; TEMP 98; O2SAT 99
[2024-03-07 09:03] LABS: APPEARANCE,URINE CLEAR (CLEAR); BILIRUBIN,URINE NEGATIVE (NEGATIVE); COLOR,URINE LIGHT YELLOW (YELLOW); GLUCOSE, URINE (UA) NEGATIVE (NEGATIVE); KETONES,URINE NEGATIVE (NEGATIVE); LEUKOCYTE ESTERASE ,URINE NEGATIVE (NEGATIVE); NITRATE,URINE NEGATIVE (NEGATIVE); OCCULT BLOOD,URINE NEGATIVE (NEGATIVE); PROTEIN,URINE NEGATIVE (NEGATIVE); SPECIFIC GRAVITIY, URINE 1.013 (1.003-1.030); UROBILINOGEN,URINE <=1.0 mg/dL (<=1.0)
[2024-03-07 09:22] LABS: ALCOHOL, URINE DRUG SCREEN NEGATIVE (NEGATIVE); AMPHET/METH SCREEN,URINE NEGATIVE (NEGATIVE); BARBITURATE SCREEN, URINE NEGATIVE (NEGATIVE); BENZODIAZEPINES SCREEN,URINE NEGATIVE (NEGATIVE); CANNABINOID SCREEN,URINE NEGATIVE (NEGATIVE); COCAINE SCREEN,URINE NEGATIVE (NEGATIVE); METHADONE SCREEN, URINE NEGATIVE (NEGATIVE); OPIATE SCREEN,URINE NEGATIVE (NEGATIVE); PHENCYCLIDINE SCREEN,URINE NEGATIVE (NEGATIVE)
[2024-03-07 09:27] VITALS: BP 116/74; PULSE 90; RESP 18; TEMP 97.5; O2SAT 96
[2024-03-07] MEDS: QUEtiapine FUMARATE 300 MG TABLET PO SCH (20:26)
[2024-03-07 21:56] VITALS: BP 119/80; PULSE 113; RESP 18; TEMP 97.7; O2SAT 95
[2024-03-08 08:05] VITALS: BP 117/62; PULSE 88; RESP 17; TEMP 97.7; O2SAT 98
[2024-03-08] MEDS: PARoxetine HCL 20 MG TABLET PO SCH (08:13)
[2024-03-08 20:27] VITALS: BP 112/67; PULSE 106; RESP 17; TEMP 97.7; O2SAT 98
[2024-03-08 23:18] VITALS: RESP 17
[2024-03-09] MEDS: PARoxetine HCL 20 MG TABLET PO SCH (08:07)
[2024-03-09 09:02] VITALS: BP 138/85; PULSE 80; RESP 18; TEMP 98.5; O2SAT 100
[2024-03-09] MEDS: GuanFACINE HCL 1 MG TABLET PO SCH (17:49)
[2024-03-09 19:44] VITALS: BP 129/80; PULSE 87; RESP 18; TEMP 98.2; O2SAT 97
[2024-03-09 20:10] VITALS: BP 129/80; PULSE 87; RESP 18; TEMP 98.2; O2SAT 97
[2024-03-09 21:01] VITALS: RESP 18
[2024-03-10 09:28] VITALS: BP 131/70; PULSE 100; RESP 16; TEMP 97.6; O2SAT 96
[2024-03-10 22:53] VITALS: BP 135/78; PULSE 90; RESP 18; TEMP 97.5
[2024-03-11 04:46] VITALS: BP 119/74; PULSE 68; RESP 17; TEMP 97.8
[2024-03-11 08:50] VITALS: BP 121/78; PULSE 81; RESP 18; TEMP 98; O2SAT 97
[2024-03-11 20:10] VITALS: BP 149/75; PULSE 98; RESP 17; TEMP 97.8; O2SAT 96
[2024-03-12 09:23] VITALS: BP 108/71; PULSE 89; RESP 18; TEMP 97.1; O2SAT 96
[2024-03-12 11:34] VITALS: RESP 18
[2024-03-12 12:34] VITALS: RESP 17
[2024-03-12] MEDS: QUEtiapine FUMARATE 200 MG TABLET PO SCH (20:13)
[2024-03-12 20:20] VITALS: BP 127/76; PULSE 60; RESP 19; TEMP 97.7; O2SAT 98
[2024-03-13 08:25] VITALS: RESP 17
[2024-03-13] MEDS: PARoxetine HCL 20 MG TABLET PO SCH (08:33)
[2024-03-13 20:14] VITALS: BP 114/74; PULSE 94; RESP 17; TEMP 98.7; O2SAT 97
[2024-03-14 08:19] VITALS: BP 133/71; PULSE 101; RESP 18; TEMP 97.1; O2SAT 97
[2024-03-14 20:09] VITALS: BP 131/72; PULSE 107; RESP 20; TEMP 97.7; O2SAT 98
[2024-03-15 05:50] VITALS: BP 105/69; PULSE 77; RESP 20; TEMP 97.5; O2SAT 97
[2024-03-15 08:11] VITALS: BP 138/76; PULSE 97; RESP 20; TEMP 97.7; O2SAT 99
[2024-03-15] MEDS ORDERED: DIVA-153 PO (15:02)
[2024-03-15] MEDS ORDERED: GUAN1TAB2 PO (15:02)
[2024-03-15] MEDS ORDERED: PARO-37 PO (15:02)
[2024-03-15] MEDS ORDERED: QUET100T34 PO (15:02)
[2024-03-15] MEDS ORDERED: QUET200T30 PO (15:02)
[2024-03-15] MEDS ORDERED: MELA5TAB40 PO (15:02)
[2024-03-15 17:20] VITALS: BP 135/82; PULSE 87; RESP 19; TEMP 97.9
[2024-03-15 20:11] VITALS: BP 120/75; PULSE 95; RESP 16; TEMP 97.5; O2SAT 96
[2024-03-16 01:43] VITALS: RESP 18
[2024-03-16 09:21] VITALS: RESP 17
[2024-03-16 09:31] VITALS: BP 123/70; PULSE 90; RESP 18; TEMP 97.9; O2SAT 98
[2024-03-16 10:21] VITALS: RESP 17
== END 2024-03-16 15:58 | disposition home or self-care (01) | DRG 750 ==
LOC: EMS 02:40 → B3A 17:40
PROVIDERS: ADMIT Psychiatry & Neurology Psychiatry; ATTEND Psychiatry & Neurology Psychiatry
PROC: GZ56ZZZ Individual Psychotherapy, Supportive (ICD-10-PCS; 2024-02-27)
PROC: GZHZZZZ Group Psychotherapy (ICD-10-PCS; principal; 2024-02-28)
PROC: GZ58ZZZ Individual Psychotherapy, Cognitive-Behavioral (ICD-10-PCS; 2024-02-28)
PROC: GZ51ZZZ Individual Psychotherapy, Behavioral (ICD-10-PCS; 2024-03-01)
DX: F25.0 Schizoaffective disorder, bipolar type (principal); R45.851 Suicidal ideations; F90.9 Attention-deficit hyperactivity disorder, unspecified type; G47.00 Insomnia, unspecified; F17.210 Nicotine dependence, cigarettes, uncomplicated; E78.1 Pure hyperglyceridemia; Z20.822 Contact with and (suspected) exposure to COVID-19; D72.829 Elevated white blood cell count, unspecified; F41.9 Anxiety disorder, unspecified; Z90.49 Acquired absence of other specified parts of digestive tract; Z74.01 Bed confinement status; Z79.899 Other long term (current) drug therapy; Z88.0 Allergy status to penicillin; Z91.013 Allergy to seafood
CPT/HCPCS: 80048; 80061; 80164; 80307; 81003; 83036; 84439; 84443; 85025; 86592; 99285

== ENCOUNTER 2024-03-10 22:42 | Emergency (ER) | payer MEDICAID, OTHER ==
[~2024-03-10] VITALS: Ht 177.8 cm; Wt 87.0 kg
[2024-03-10 23:03] VITALS: BP 120/80; PULSE 76; RESP 16; TEMP 98.3
[2024-03-10] MEDS: IBUPROFEN 600 MG TABLET PO ONE (23:47)
== END 2024-03-11 04:23 ==
LOC: EMS 22:42
DX: M70.42 Prepatellar bursitis, left knee (principal); F25.0 Schizoaffective disorder, bipolar type; F41.9 Anxiety disorder, unspecified; Z87.891 Personal history of nicotine dependence; Z90.49 Acquired absence of other specified parts of digestive tract; Z88.0 Allergy status to penicillin; Z91.013 Allergy to seafood; Y93.89 Activity, other specified
CPT/HCPCS: 99283

== ENCOUNTER 2024-04-25 13:20 | Emergency (ER) | payer OTHER ==
[~2024-04-25] VITALS: Ht 172.7 cm; Wt 90.9 kg
[~2024-04-25 13:20] MED LIST changes: -CITA-144 PO; -DIVA-112 PO; +DIVA-153 PO; +GUAN1TAB2 PO; +MELA5TAB40 PO; +PARO-37 PO; +QUET200T30 PO; -QUET300T19 PO
[2024-04-25 13:40] VITALS: BP 126/68; PULSE 103; RESP 20; O2SAT 99
== END 2024-04-25 20:56 | disposition home or self-care (01) ==
LOC: EMS 13:21
DX: M25.562 Pain in left knee (principal); Z88.0 Allergy status to penicillin; Z91.013 Allergy to seafood; F17.210 Nicotine dependence, cigarettes, uncomplicated
CPT/HCPCS: 99283